=== PATIENT | female | born 1945 | race Caucasian/White ===

== ENCOUNTER 2017-06-17 16:07 | Emergency (ER) | payer OTHER ==
[~2017-06-17] VITALS: Ht 175.3 cm; Wt 120.7 kg
[~2017-06-17 16:07] MED LIST: AMLODIPINE BESY10 MG PO; AMLODIPINE BESYL5 MG PO; ASPIRIN EC81 MG PO; ATORVASTATIN CA10 MG PO; BENICAR HCT 401 EAC1 PO; BENICAR20 MG PO; BENICAR40 MG; CARVEDILOL25 MG PO; CLARITIN10 MG PO; CLONIDINE HCL0.1 MG PO; CLONIDINE HCL0.2 MG PO; COZAAR100 MG PO; CYMBALTA30 MG; CYMBALTA30 MG PO; DEPAKOTE ER250 MG PO; GABAPENTIN100 MG PO; HARVONI PO; HUMALOG MI100 UNIT/2 SQ; HYDROCHLOROTH12.5 MG; LACTULOSE10 GM/151 PO; LOSARTAN POTAS100 MG PO; LOSARTAN-HCTZ1 EAC1 PO; LYRICA200 MG PO; MENTHOL COUGH PO; METFORMIN HCL500 MG PO; METOPROLOL TART50 MG PO; NAMENDA10 MG PO; NORVASC5 MG PO; NOVOLOG100 UNITS1; OXYCONTIN15 MG; PILOCARPINE HCL5 MG PO; PROMETHAZINE HC25 M1 PO; QUETIAPINE FUMA25 MG PO; ROBITUSSIN-COU237 ML PO; SALINE NASAL SP45 ML; TIZANIDINE HCL4 M1 PO; TORSEMIDE10 MG PO; ULTRAM 50MG50 MG PO; XANAX2 MG
[2017-06-18] MEDS ORDERED: DIAZEPAM 5 MG TAB PO PRN (01:30)
[2017-06-18] MEDS ORDERED: HYDROCODONE/APAP 5MG-325MG TAB PO ONE (01:30)
--- NOTE | 2017-06-18 02:25 | Diagnostic Imaging Report ---
History: Trauma, fall Comparison studies: None Technique: Axial images were obtained from the brain and cervical spine. Coronal and sagittal images reconstructed from the axial data. Intravenous contrast: None Findings: Head CT: Multiple prior head CTs which date to 01/11/2015, most recent head CT of 07/14/2015. Brain MRI of 03/19/2015. Cervical spine CT of 01/19/2014. Scalp: No abnormalities. Bones: No fractures, blastic or lytic lesions. Extra-axial spaces: No masses. No fluid collections. Brain sulci: Mildly prominent. Ventricles: Mild compensatory dilatation. No hydrocephalus. Extra-axial spaces: No mass, no fluid collection. Parenchyma: No mass, acute hemorrhage or acute cortical vascular insults. A few scattered ill-defined and mildly confluent-appearing periventricular hypodensities in the supratentorial white matter are nonspecific but most compatible with chronic small vessel ischemic changes. Mild disproportionate right anteromedial temporal lobe volume loss is nonspecific. Sellar/suprasellar region: No abnormalities. Craniocervical junction: The foramen magnum is patent. No Chiari one malformation. Cervical spine CT: Fractures: None. Soft tissues: No gross abnormalities. Atlantoaxial articulation: Intact. Alignment: Straightened cervical curvature may be positional. No subluxations. Cervicomedullary junction: No abnormalities. The foramen magnum is patent. Vertebrae: No infection or neoplasm. Degenerative changes: Mild foraminal stenosis on the left at C3-C4 and at C4-C5 due to uncovertebral and facet arthrosis. Multilevel facet arthrosis, worse/moderate bilaterally at C7-T1. No significant canal stenosis. Incidental findings: Atherosclerotic calcifications in the carotid siphons. Nonspecific left mastoid opacification, new from previous exam. IMPRESSION: Head CT: 1. No acute intracranial abnormalities. 2. New nonspecific left mastoid opacification. 3. No other changes from previous head CT of 07/14/2015. 4. Chronic findings include: Mild generalized volume loss, moderate microvascular ischemic changes and nonspecific right anteromedial temporal lobe volume loss. Cervical spine CT: 1. No cervical spine fracture or subluxation. 2. Degenerative changes as described. 3. Cannot adequately evaluate ligament, spinal cord and or vascular abnormalities on the basis of this examination. Signed by: Dr. Guanakito Parsons M.D. on 06/18/2017 2:21 AM
--- NOTE | 2017-06-18 02:28 | Diagnostic Imaging Report ---
EXAM: CHEST SINGLE (PORTABLE), AP 1 view DATE: 06/18/2017 1:17 AM Time stamp on exam: 0155 hours INDICATION: Fall COMPARISON: AP view of the chest March 13, 2017 FINDINGS: LINES/TUBES: None LUNGS: No consolidations or edema. Calcified granuloma right upper lung. PLEURA: No effusions or pneumothorax. HEART AND MEDIASTINUM: Normal size and contour. BONES AND SOFT TISSUES: No acute findings. IMPRESSION: No acute thoracic abnormality. Signed by: Dr. Gail Lebron M.D. on 06/18/2017 2:24 AM
--- NOTE | 2017-06-18 02:34 | Diagnostic Imaging Report ---
EXAM: FOOT LEFT COMPLETE, AP, lateral and oblique DATE: 06/18/2017 1:17 AM Time stamp on exam: 0156 hours INDICATION: Fall, left foot pain COMPARISON: None FINDINGS: BONES: No acute fractures. JOINTS: Questionable widening between the first and second metatarsal bases. SOFT TISSUES: Soft tissue swelling of the foot. IMPRESSION: No evidence of a left foot fracture. Questionable widening between the first and second metatarsal bases. If there is focal point tenderness, consider follow-up MRI of the foot look for ligamentous injury. Signed by: Dr. Gail Lebron M.D. on 06/18/2017 2:31 AM
--- NOTE | 2017-06-18 02:35 | Diagnostic Imaging Report ---
EXAM: KNEE RIGHT THREE VIEWS, AP, lateral and oblique DATE: 06/18/2017 1:17 AM Time stamp on exam: 0203 hours INDICATION: Fall, right knee pain COMPARISON: None FINDINGS: BONES: No acute fractures. JOINTS: No malalignment. Tricompartmental osteophytosis. Patellofemoral compartment joint space narrowing. SOFT TISSUES: Normal IMPRESSION: No evidence of a right knee fracture. Signed by: Dr. Gail Lebron M.D. on 06/18/2017 2:32 AM
[2017-06-18 03:26] VITALS: BP 142/62
== END 2017-06-18 06:57 | disposition home or self-care (01) ==
LOC: ER 16:07
DX: S00.83XA Contusion of other part of head, initial encounter (principal); S20.219A Contusion of unspecified front wall of thorax, initial encounter; S80.01XA Contusion of right knee, initial encounter; S90.32XA Contusion of left foot, initial encounter; S16.1XXA Strain of muscle, fascia and tendon at neck level, initial encounter; S96.912A Strain of unspecified muscle and tendon at ankle and foot level, left foot, initial encounter
CPT/HCPCS: 70450; 71010; 72125; 99284

== ENCOUNTER → 2017-07-19 | Outpatient (CLI) | payer OTHER ==
[2017-07-19 17:41] LABS: ANION GAP 12.1 mmol/L (8-16); BASOPHILS % 0.2 % (0.0-1.0); CALCIUM 8.5 mg/dL (8.4-10.2); CREATININE, SERUM 1.26 mg/dL (0.57-1.11); EOSINOPHILS # (AUTO) 0.1 (0.0-0.4); EOSINOPHILS % 2.5 % (0.0-6.0); HEMATOCRIT 33.4 % (34.2-44.1); HEMOGLOBIN 10.7 g/dL (12.0-16.0); LYMPHOCYTES # (AUTO) 1.2 (1.0-3.2); LYMPHOCYTES % 23.4 % (18.0-39.1); MEAN CORPUSCULAR HEMOGLOBIN 25.8 pg (28-32); MEAN CORPUSCULAR VOLUME 80.7 fL (81-99); MONOCYTES # (AUTO) 0.5 (0.2-0.8); MONOCYTES % 8.7 % (4.4-11.3); NEUTROPHILS # (AUTO) 3.4 (2.1-6.9); NEUTROPHILS % 64.8 % (38.7-80.0); PLATELET COUNT 119 x10e3/uL (140-360); POTASSIUM 4.1 mmol/L (3.5-5.1); RED BLOOD COUNT 4.14 x10e6/uL (3.6-5.1); RED CELL DISTRIBUTION WIDTH 15.3 % (11.7-14.4)
== END ==
LOC: NPA 12:22
PROVIDERS: ATTEND Internal Medicine Pulmonary Disease
DX: Z02.89 Encounter for other administrative examinations (principal)
CPT/HCPCS: 36415; 80048; 85025

== ENCOUNTER → 2017-07-23 | Outpatient (CLI) | payer OTHER ==
[2017-07-23 15:34] LABS: ANION GAP 14.9 mmol/L (8-16); CALCIUM 9.4 mg/dL (8.4-10.2); CREATININE, SERUM 1.14 mg/dL (0.57-1.11); POTASSIUM 3.9 mmol/L (3.5-5.1)
[2017-07-23 15:35] LABS: BASOPHILS % 0.3 % (0.0-1.0); EOSINOPHILS # (AUTO) 0.1 (0.0-0.4); EOSINOPHILS % 2.2 % (0.0-6.0); HEMATOCRIT 39.3 % (34.2-44.1); HEMOGLOBIN 12.2 g/dL (12.0-16.0); LYMPHOCYTES # (AUTO) 1.7 (1.0-3.2); LYMPHOCYTES % 26.3 % (18.0-39.1); MEAN CORPUSCULAR HEMOGLOBIN 25.6 pg (28-32); MEAN CORPUSCULAR VOLUME 82.6 fL (81-99); MONOCYTES # (AUTO) 0.3 (0.2-0.8); MONOCYTES % 5.3 % (4.4-11.3); NEUTROPHILS # (AUTO) 4.2 (2.1-6.9); NEUTROPHILS % 65.6 % (38.7-80.0); PLATELET COUNT 150 x10e3/uL (140-360); RED BLOOD COUNT 4.76 x10e6/uL (3.6-5.1); RED CELL DISTRIBUTION WIDTH 15.3 % (11.7-14.4)
== END ==
LOC: NPA 12:30
PROVIDERS: ATTEND Internal Medicine Pulmonary Disease
DX: Z02.89 Encounter for other administrative examinations (principal)
CPT/HCPCS: 36415; 80048; 85025

== ENCOUNTER 2017-08-29 12:43 | Observation (INO) | payer MEDICARE, OTHER ==
[~2017-08-29] VITALS: Ht 170.2 cm; Wt 121.8 kg
--- OUTSIDE RECORDS SUMMARY | 2017-08-29 12:46 | XMS REPORT ---
[facility] Address Unknown Phone Unavailable Care Team Providers Care Control Clerk Head Name Role Phone ANA ROSA AGUIRRE Unavailable Unavailable KARIS CONNOR Unavailable Unavailable Problems This patient has no known problems. Allergies, Adverse Reactions, Alerts This patient has no known allergies or adverse reactions. Medications This patient has no known medications. Results Test Description Test Time Test Comments Text Results Atomic Results Result Comments CT BRAIN WO [place] [address] Patient Name: RAJNI DUDLEY MR #: [id number] : 1945 Age/Sex: 72/F Req # : [id number] Adm Physician: Ordered by: ANA ROSA AGUIRRE MD Report #: [id number] Location: ER Room/Bed: Procedure: [id number] CT/CT BRAIN WO Exam Date: 06/18/17 Exam Time: 0140 REPORT STATUS: Signed History: Trauma, fall Comparison studies: None Technique: Axial images were obtained from the brain and cervical spine. Coronal and sagittal images reconstructed from the axial data. Intravenous contrast: None Findings: Head CT: Multiple prior head CTs which date to 01/11/2015, most recent head CT of 07/14/2015. Brain MRI of . Cervical spine CT of 01/19/2014. Scalp: No abnormalities. Bones : No fractures, blastic or lytic lesions. Extra-axial spaces: No masses. No fluid collections. Brain sulci: Mildly prominent. Ventricles: Mild compensatory dilatation. No hydrocephalus. Extra-axial spaces: No mass, no fluid collection. Parenchyma: No mass, acute hemorrhage or acute cortical vascular insults. A few scattered ill-defined and mildly confluent- appearing periventricular hypodensities in the supratentorial white matter are nonspecific but most compatible with chronic small vessel ischemic changes. Mild disproportionate right anteromedial temporal lobe volume loss is nonspecific. Sellar/suprasellar region: No abnormalities. Craniocervical junction: The foramen magnum is patent. No Chiari one malformation. Cervical spine CT: Fractures: None. Soft tissues: No gross abnormalities. Atlantoaxial articulation: Intact. Alignment: Straightened cervical curvature may be positional. No subluxations. Cervicomedullary junction: No abnormalities. The foramen magnum is patent. Vertebrae: No infection or neoplasm. Degenerative changes: Mild foraminal stenosis on the left at C3-C4 and at C4-C5 due to uncovertebral and facet arthrosis. Multilevel facet arthrosis, worse/moderate bilaterally at C7- T1. No significant canal stenosis. Incidental findings: Atherosclerotic calcifications in the carotid siphons. Nonspecific left mastoid opacification , new from previous exam. IMPRESSION: Head CT: 1. No acute intracranial abnormalities. 2. New nonspecific left mastoid opacification. 3. No other changes from previous head CT of 07/14/2015. 4. Chronic findings include: Mild generalized volume loss, moderate microvascular ischemic changes and nonspecific right anteromedial temporal lobe volume loss. Cervical spine CT: 1. No cervical spine fracture or subluxation. 2. Degenerative changes as described. 3. Cannot adequately evaluate ligament, spinal cord and or vascular abnormalities on the basis of this examination. Signed by: Dr. Justina Parsons M.D. on 06/18/2017 2:21 AM Dictated By: JUSTINA PARSONS MD 0 Transcribed By: MICHEAL on 06/18/17220 COPY TO: ANA ROSA AGUIRRE MD CT CERVICAL SPINE WO [place] [address] Patient Name: RAJNI DUDLEY MR #: [id number] : 1945 Age/Sex: 72/F Req #: [id number] Adm Physician: Ordered by: ANA ROSA AGUIRRE MD Report #: [id number] Location: ER Room/Bed: Procedure: [id number] CT/CT CERVICAL SPINE WO Exam Date: 06/18/17 Exam Time: 0140 REPORT STATUS: Signed History: Trauma, fall Comparison studies: None Technique: Axial images were obtained from the brain and cervical spine. Coronal and sagittal images reconstructed from the axial data. Intravenous contrast: None Findings: Head CT: Multiple prior head CTs which date to 01/11/2015, most recent head CT of 2015. Brain MRI of 03/19/2015. Cervical spine CT of 01/19/2014. Scalp: No abnormalities. Bones: No fractures, blastic or lytic lesions. Extra- axial spaces: No masses. No fluid collections. Brain sulci: Mildly prominent. Ventricles: Mild compensatory dilatation. No hydrocephalus. Extra -axial spaces: No mass, no fluid collection. Parenchyma: No mass, acute hemorrhage or acute cortical vascular insults. A few scattered ill-defined and mildly confluent-appearing periventricular hypodensities in the supratentorial white matter are nonspecific but most compatible with chronic small vessel ischemic changes. Mild disproportionate right anteromedial temporal lobe volume loss is nonspecific. Sellar/suprasellar region: No abnormalities. Craniocervical junction: The foramen magnum is patent. No Chiari one malformation. Cervical spine CT: Fractures: None. Soft tissues: No gross abnormalities. Atlantoaxial articulation: Intact. Alignment: Straightened cervical curvature may be positional. No subluxations. Cervicomedullary junction: No abnormalities. The foramen magnum is patent. Vertebrae: No infection or neoplasm. Degenerative changes: Mild foraminal stenosis on the left at C3-C4 and at C4-C5 due to uncovertebral and facet arthrosis. Multilevel facet arthrosis, worse/moderate bilaterally at C7- T1. No significant canal stenosis. Incidental findings: Atherosclerotic calcifications in the carotid siphons. Nonspecific left mastoid opacification , new from previous exam. IMPRESSION: Head CT: 1. No acute intracranial abnormalities. 2. New nonspecific left mastoid opacification. 3. No other changes from previous head CT of 07/14/2015. 4. Chronic findings include: Mild generalized volume loss, moderate microvascular ischemic changes and nonspecific right anteromedial temporal lobe volume loss. Cervical spine CT: 1. No cervical spine fracture or subluxation. 2. Degenerative changes as described. 3. Cannot adequately evaluate ligament, spinal cord and or vascular abnormalities on the basis of this examination. Signed by: Dr. Justina Parsons M.D. on 06/18/2017 2:21 AM Dictated By: JUSTINA PARSONS MD 0 Transcribed By: MICHEAL on 06/18/17220 COPY TO: ANA ROSA AGUIRRE MD CHEST SINGLE (PORTABLE) [place] [address] Patient Name: RAJNI DUDLEY MR #: [id number] : 1945 Age/Sex: 72/F Req #: [id number] Adm Physician: Ordered by: ANA ROSA AGUIRRE MD Report #: [id number] Location: ER Room/Bed: Procedure: [id number] DX/CHEST SINGLE (PORTABLE) Exam Date: 06/18/17 Exam Time: 0155 REPORT STATUS: Signed EXAM: CHEST SINGLE (PORTABLE), AP 1 view DATE: 06/18/2017 1:17 AM Time stamp on exam: 0155 hours INDICATION: Fall COMPARISON: AP view of the chest March 13, 2017 FINDINGS: LINES/TUBES: None LUNGS: No consolidations or edema. Calcified granuloma right upper lung. PLEURA: No effusions or pneumothorax. HEART AND MEDIASTINUM: Normal size and contour. BONES AND SOFT TISSUES: No acute findings. IMPRESSION: No acute thoracic abnormality. Signed by: Dr. Lynda Lebron M.D. on 06/18/2017 2: 24 AM Dictated By: LYNDA LEBRON MD 3 Transcribed By: MICHEAL on 06/18/17223 COPY TO: ANA ROSA AGUIRRE MD KNEE RIGHT THREE VIEWS [place] [address] Patient Name: RAJNI DUDLEY MR #: [id number] : 1945 Age/Sex: 72/F Req #: [id number] Adm Physician: Ordered by: ANA ROSA AGUIRRE MD Report #: [id number] Location: ER Room/Bed: Procedure: [id number] DX/KNEE RIGHT THREE VIEWS Exam Date: 06/18/17 Exam Time: 0155 REPORT STATUS: Signed EXAM: KNEE RIGHT THREE VIEWS, AP, lateral and oblique DATE: 06/18/2017 1:17 AM Time stamp on exam: 0203 hours INDICATION: Fall, right knee pain COMPARISON: None FINDINGS: BONES: No acute fractures. JOINTS: No malalignment. Tricompartmental osteophytosis. Patellofemoral compartment joint space narrowing. SOFT TISSUES: Normal IMPRESSION: No evidence of a right knee fracture. Signed by: Dr. Lynda Lebron M.D. on 2017 2:32 AM Dictated By: LYNDA LEBRON MD 1 Transcribed By: MICHEAL on 06/18/17231 COPY TO: ANA ROSA AGUIRRE MD FOOT LEFT COMPLETE [place] [address] Patient Name: RAJNI DUDLEY MR #: [id number] : 1945 Age/Sex: 72/F Req #: [id number] Adm Physician: Ordered by: ANA ROSA AGUIRRE MD Report #: [id number] Location: ER Room/Bed: Procedure: [id number] DX/FOOT LEFT COMPLETE Exam Date: 06/18/17 Exam Time: 0155 REPORT STATUS: Signed EXAM: FOOT LEFT COMPLETE, AP, lateral and oblique DATE: 06/18/2017 1:17 AM Time stamp on exam : 0156 hours INDICATION: Fall, left foot pain COMPARISON: None FINDINGS : BONES: No acute fractures. JOINTS: Questionable widening between the first and second metatarsal bases. SOFT TISSUES: Soft tissue swelling of the foot. IMPRESSION: No evidence of a left foot fracture. Questionable widening between the first and second metatarsal bases. If there is focal point tenderness, consider follow-up MRI of the foot look for ligamentous injury. Signed by: Dr. Lynda Lebron M.D. on 06/18/2017 2:31 AM Dictated By: LYNDA LEBRON MD 0 Transcribed By: MICHEAL on 06/18/17230 COPY TO: ANA ROSA AGUIRRE MD CHEST SINGLE (PORTABLE) [place] [address] Patient Name: RAJNI DUDLEY MR #: [id number] : 1945 Age/Sex: 72/F Req #: [id number] [facility] Physician: Ordered by: KARIS CONNOR MD Report #: [id number] Location: ER Room/Bed: Procedure: [id number] DX/CHEST SINGLE (PORTABLE) Exam Date: 03/13/17 Exam Time: 1909 REPORT STATUS: Signed EXAM: CHEST SINGLE (PORTABLE), AP 1 view DATE: 03/13/2017 6:30 PM Time stamp on exam: 1839 hours INDICATION: Chest pain COMPARISON: AP view of the chest July 14, 2015 FINDINGS: LINES/TUBES: None LUNGS: No consolidations or edema. Several 1 cm nodule in the right lung since at least 2013, considered benign. PLEURA: No effusions or pneumothorax. HEART AND MEDIASTINUM: Normal size and contour. BONES AND SOFT TISSUES: No acute findings. IMPRESSION: No acute thoracic abnormality. Signed by: Dr. Lynda Lebron M.D. on 03/13/2017 7:39 PM Dictated By: LYNDA LEBRON MD 38 Transcribed By: MICHEAL on 03/13/171938 COPY TO: KARIS CONNOR MD
[2017-08-29] MEDS ORDERED: FAMOTIDINE 20 MG/2 ML VIAL IV STA (13:47)
[2017-08-29] MEDS ORDERED: SODIUM CHLORIDE 0.9% 1000ML 1,000 ML IV STA (13:47)
[2017-08-29] MEDS ORDERED: METRONIDAZOLE 500MG/NS 100ML 100 ML IV ONE (14:00)
[2017-08-29 14:24] LABS: BASOPHILS % 0.3 % (0.0-1.0); EOSINOPHILS # (AUTO) 0.1 (0.0-0.4); EOSINOPHILS % 2.2 % (0.0-6.0); HEMOGLOBIN 11.7 g/dL (12.0-16.0); LYMPHOCYTES # (AUTO) 1.2 (1.0-3.2); LYMPHOCYTES % 19.8 % (18.0-39.1); MEAN CORPUSCULAR HEMOGLOBIN 26.5 pg (28-32); MEAN CORPUSCULAR HGB CONC 32.5 g/dL (31-35); MEAN CORPUSCULAR VOLUME 81.6 fL (81-99); MONOCYTES # (AUTO) 0.4 (0.2-0.8); MONOCYTES % 6.4 % (4.4-11.3); NEUTROPHILS # (AUTO) 4.2 (2.1-6.9); NEUTROPHILS % 70.5 % (38.7-80.0); PLATELET COUNT 129 x10e3/uL (140-360); RED BLOOD COUNT 4.41 x10e6/uL (3.6-5.1)
[2017-08-29] MEDS ORDERED: CIPROFLOXACIN 400 MG/D5W 200ML 200 ML IV ONE (14:30)
[2017-08-29] MEDS ORDERED: NYSTATIN/TRIAMCINOLONE 15 GM CR TOP ONE (14:30)
[2017-08-29] MEDS ORDERED: PROMETHAZINE 12.5MG/ NACL 0.9% 12.5 MG/50 ML BAG IV ONE (14:30)
[2017-08-29] MEDS ORDERED: MORPHINE SULFATE 2 MG/ML SYR IV ONE (14:30)
[2017-08-29 14:33] LABS: INR 1.14; PROTHROMBIN TIME 13.7 seconds (11.9-14.5)
[2017-08-29 14:34] LABS: PARTIAL THROMBOPLASTIN TIME 24.7 seconds (23.8-35.5)
[2017-08-29 14:43] LABS: ALANINE AMINOTRANSFERASE 11 IU/L (0-55); ALBUMIN 3.6 g/dL (3.5-5.0); ALBUMIN/GLOBULIN RATIO 0.9 (0.8-2.0); ALKALINE PHOSPHATASE 102 IU/L (40-150); ANION GAP 12.1 mmol/L (8-16); BLOOD UREA NITROGEN 17 mg/dL (7-26); BUN/CREATININE RATIO 18 (6-25); CALCIUM 9.5 mg/dL (8.4-10.2); CARBON DIOXIDE 30 mmol/L (22-29); CHLORIDE 102 mmol/L (98-107); CREATINE KINASE 28 IU/L (29-168); CREATININE, SERUM 0.93 mg/dL (0.57-1.11); EST GLOMERULAR FILTRATION RATE 59 ML/MIN (60-); GLUCOSE 151 mg/dL (74-118); LIPASE 40 U/L (8-78); MAGNESIUM 1.7 MG/DL (1.3-2.1); POTASSIUM 4.1 mmol/L (3.5-5.1); SODIUM 140 mmol/L (136-145)
--- NOTE | 2017-08-29 14:44 | Diagnostic Imaging Report ---
EXAM: XR CHEST 1 VIEW DATE: 08/29/2017 1:47 PM INDICATION: Pain COMPARISON: None FINDINGS: Lines and Tubes: None Heart and Mediastinum: No acute findings. Lungs and Pleura: Granuloma right upper lung. No pneumothorax. Hazy opacities lung bases suggest overlying soft tissue. Bones and Soft Tissues: No acute findings. IMPRESSION: 1. No acute cardiopulmonary findings. Signed by: Dr. Ephraim Robert MD on 08/29/2017 2:41 PM
[2017-08-29 15:16] LABS: B-TYPE NATRIURETIC PEPTIDE2 63.3 pg/mL (0-100)
[2017-08-29 15:19] LABS: BILIRUBIN,URINE NEGATIVE (NEGATIVE); CLARITY,URINE CLEAR (CLEAR); COLOR,URINE YELLOW (YELLOW); KETONES,URINE NEGATIVE (NEGATIVE); LEUKOCYTE ESTERASE ,URINE 2+ (NEGATIVE); NITRITE,URINE NEGATIVE (NEGATIVE); PROTEIN,URINE DIPSTICK NEGATIVE (NEGATIVE); URINE UROBILINOGEN 0.2 mg/dL (0.2 - 1)
[2017-08-29 15:33] LABS: RBC,URINE 0-5 /HPF (0-5)
[2017-08-29 15:34] LABS: BACTERIA,URINE RARE /HPF; EPITHELIAL CELLS,URINE FEW /LPF
--- NOTE | 2017-08-29 15:53 | Diagnostic Imaging Report ---
EXAM: CT Abdomen and Pelvis WITH contrast INDICATION: Pain. COMPARISON: None. TECHNIQUE: Abdomen and Pelvis was scanned utilizing a multidetector helical scanner after administration of IV contrast. Coronal and sagittal reformations were obtained. IV CONTRAST: 100 mL Isovue-370 COMPLICATIONS: None RADIATION DOSE: Total DLP:862 mGy*cm Estimated effective dose: (DLP x 0.015 x size factor) mSv CTDIvol has been reviewed. It is below the limits set by the Radiation Protocol Committee (RPC). FINDINGS: Abdomen: Lung Bases: No acute findings. Solid Organs: Splenic granulomata present. Otherwise, liver, adrenals, kidneys, spleen, and pancreas are unremarkable. Donalds phenomenon incidentally noted. Upper GI Tract: Post surgical changes GE junction. Gastric decompression limits adequate evaluation. No small bowel obstructive changes. Vascularity: Mild vascular calcifications with no aneurysm of the aorta. Lymph Nodes: No suspicious adenopathy. Other: None. Pelvis: Bladder: Decompressed. Other: Uterus absent. Colon: No acute colonic findings. Bones: No acute findings. IMPRESSION: 1. No acute findings. See above for full details. Signed by: Dr. Ephraim Robert MD on 08/29/2017 3:49 PM
[2017-08-29] MEDS ORDERED: SODIUM CHLORIDE 0.9% 50ML 50 ML ONE (16:00)
[2017-08-29] MEDS ORDERED: IOPAMIDOL 370 MG/ML 200 ML INFUS..BTL INJ ONE (16:00)
[2017-08-29] MEDS ORDERED: CEFTRIAXONE SOD 1 GM VIAL IM ONE (16:30)
[2017-08-29] MEDS ORDERED: DEXTROSE 50% SYRINGE 50 ML IV PRN (16:30)
[2017-08-29] MEDS ORDERED: CIPROFLOXACIN 400 MG/D5W 200ML 200 ML IV SCH (17:00)
[2017-08-29] MEDS: SODIUM CHLORIDE 0.9% 1000ML 1,000 ML IV SCH (17:10)
[2017-08-29] MEDS: INSULIN REGULAR, HUMAN 100 UNIT/1 ML 3ML VIAL SQ SCH ×2 (17:30→21:00)
[2017-08-29] MEDS ORDERED: METRONIDAZOLE 500MG/NS 100ML 100 ML IV SCH (18:00)
[2017-08-29 18:20] VITALS: BP 156/70
[2017-08-29 18:33] VITALS: BP 156/70
[2017-08-29] MEDS: NYSTATIN/TRIAMCINOLONE 15 GM CR TOP SCH (19:08)
[2017-08-29 20:00] VITALS: BP 169/70
[2017-08-29] MEDS: MORPHINE SULFATE 2 MG/ML SYR IV PRN (21:35)
[2017-08-29] MEDS: AMLODIPINE BESYLATE 10 MG TAB PO SCH (23:00)
[2017-08-29] MEDS: METRONIDAZOLE 500MG/NS 100ML 100 ML IV SCH (23:00)
[2017-08-29] MEDS ORDERED: HYDRALAZINE HCL 20 MG/ML VIAL IV PRN (23:00)
[2017-08-29] MEDS: FAMOTIDINE 20 MG TAB PO SCH (23:00)
[2017-08-29] MEDS ORDERED: NON-FORMULARY MEDICATION (Carvedilol 25 MG) PO SCH (23:00)
[2017-08-30] VITALS (9 sets, daily range): BP systolic 126–180; BP diastolic 58–72
[2017-08-30] MEDS: SODIUM CHLORIDE 0.9% 1000ML 1,000 ML IV SCH ×2 (00:30→08:30)
[2017-08-30] MEDS ORDERED: HYDROXYZINE HCL25 MG PO (02:00)
[2017-08-30] MEDS ORDERED: NYSTATIN1 EAC1 TOP (02:00)
[2017-08-30] MEDS ORDERED: ULTRAM50 MG PO (02:00)
[2017-08-30] MEDS ORDERED: NAMENDA10 MG PO (02:00)
[2017-08-30] MEDS: METRONIDAZOLE 500MG/NS 100ML 100 ML IV SCH ×3 (05:00→20:53)
[2017-08-30] MEDS: CIPROFLOXACIN 400 MG/D5W 200ML 200 ML IV SCH ×2 (05:00→17:37)
[2017-08-30 06:51] LABS: BASOPHILS % 0.4 % (0.0-1.0); EOSINOPHILS # (AUTO) 0.1 (0.0-0.4); EOSINOPHILS % 2.6 % (0.0-6.0); HEMATOCRIT 32.1 % (34.2-44.1); HEMOGLOBIN 10.6 g/dL (12.0-16.0); LYMPHOCYTES # (AUTO) 1.1 (1.0-3.2); LYMPHOCYTES % 20.7 % (18.0-39.1); MEAN CORPUSCULAR HEMOGLOBIN 26.5 pg (28-32); MEAN CORPUSCULAR VOLUME 80.3 fL (81-99); MONOCYTES # (AUTO) 0.4 (0.2-0.8); MONOCYTES % 6.8 % (4.4-11.3); NEUTROPHILS # (AUTO) 3.8 (2.1-6.9); NEUTROPHILS % 69.1 % (38.7-80.0); PLATELET COUNT 117 x10e3/uL (140-360); RED CELL DISTRIBUTION WIDTH 14.8 % (11.7-14.4)
[2017-08-30 07:30] LABS: ALBUMIN 3.2 g/dL (3.5-5.0); ANION GAP 10.9 mmol/L (8-16); CALCIUM 8.9 mg/dL (8.4-10.2); CREATININE, SERUM 0.93 mg/dL (0.57-1.11); POTASSIUM 3.9 mmol/L (3.5-5.1)
[2017-08-30] MEDS: MORPHINE SULFATE 2 MG/ML SYR IV PRN ×3 (08:00→20:54)
[2017-08-30] MEDS: FAMOTIDINE 20 MG TAB PO SCH ×2 (08:09→15:32)
[2017-08-30] MEDS: QUETIAPINE FUMARATE 25 MG TAB PO SCH (08:33)
[2017-08-30] MEDS: INSULIN REGULAR, HUMAN 100 UNIT/1 ML 3ML VIAL SQ SCH ×4 (08:35→20:54)
[2017-08-30] MEDS: OLMESARTAN 20 MG TAB PO SCH (08:35)
[2017-08-30] MEDS: NYSTATIN/TRIAMCINOLONE 15 GM CR TOP SCH ×2 (08:36→17:00)
[2017-08-30] MEDS: DIVALPROEX SODIUM 250 MG TAB...DR PO SCH ×2 (08:36→20:53)
[2017-08-30] MEDS: METFORMIN HCL 500 MG TAB PO SCH ×2 (08:36→17:41)
[2017-08-30] MEDS: DULOXETINE HCL 30 MG DELAYED RELEASE PO SCH (08:36)
[2017-08-30] MEDS: AMLODIPINE BESYLATE 10 MG TAB PO SCH (08:36)
[2017-08-30] MEDS: GABAPENTIN 100 MG CAP PO SCH ×2 (08:36→17:41)
[2017-08-30] MEDS: LORATADINE 10 MG TAB PO SCH (08:36)
[2017-08-30] MEDS: CARVEDILOL 12.5 MG TAB PO SCH ×2 (08:36→21:39)
[2017-08-30] MEDS ORDERED: CARVEDILOL 12.5 MG TAB PO SCH (09:00)
[2017-08-30] MEDS ORDERED: DIVALPROEX SODIUM 250 MG PO SCH (09:00)
[2017-08-30] MEDS ORDERED: TEMAZEPAM 15 MG CAP PO PRN (15:45)
[2017-08-30] MEDS ORDERED: BISACODYL 10 MG SUPP PR ONE (15:45)
[2017-08-30] MEDS ORDERED: TRAMADOL HCL 50 MG TAB PO PRN (15:45)
[2017-08-30] MEDS ORDERED: ACETAMIN/BUTALBITAL/CAFFEINE TAB PO PRN (15:45)
[2017-08-30] MEDS ORDERED: BISACODYL 10 MG SUPP PR PRN (15:45)
[2017-08-30] MEDS ORDERED: POLYETHYLENE GLYCOL 3350 17 GM PACK PO PRN (15:45)
[2017-08-30] MEDS: NYSTATIN 15 GM POWDER UD BTL TOP SCH (17:00)
[2017-08-30] MEDS: MEMANTINE 10 MG TAB PO SCH (17:41)
[2017-08-30] MEDS: DOCUSATE SODIUM 100 MG CAP PO SCH (17:41)
--- NOTE | 2017-08-30 17:42 | History and Physical ---
PRIMARY CARE PHYSICIAN: Dr. Mike Martínez. HISTORY OF PRESENT ILLNESS: The patient was sent from [facility] for evaluation as she has had a yeast infection in her groin and under her stomach folds for 2 weeks. Patient also states she has a yeast infection under the right breast. Nystatin has not been working. She has been seen in the emergency room and has been started on Flagyl and ciprofloxacin. Per documentation, she also ambulated to the triage with a slight limp and has been complaining of low back pain which is chronic in nature. PAST MEDICAL HISTORY: [id number] hypertension, diabetes mellitus, hepatitis C which has already been treated, liver disease, a spine injury approximately 8 years ago after a fall when she was working at a [employer] company, chronic low back pain, fibromyalgia, depression/anxiety, insomnia, early dementia, chronic constipation, headaches, under the care of a neurologist. PAST SURGICAL HISTORY: Cholecystectomy, appendectomy, 2 C-sections, gastric bypass with 100-pound weight loss in 1988, hernia repair, hysterectomy. SOCIAL HISTORY: Patient denies any history of tobacco use. She used to drink socially and use marijuana. No other illicit drug use. She is a half-way resident for approximately 1 year. She states that her daughter is planning on buying a house in [place] when her disability comes through in either October or November. FAMILY HISTORY: Patient's mother has a history of Alzheimer's disease. Father and brother have history of cardiac disorder. Daughter has a history of seizures. Father and brother have history of hypertension. Mother has history of skin cancer. Brother has history of kidney disease. Sister has history of gallstones. Daughter has history of arthritis. Father has history of aneurysm. ALLERGIES: SHE HAS AN ALLERGY TO PENICILLINS AND SULFA ANTIBIOTICS. HOME MEDICATIONS: Per electronic medical record. REVIEW OF SYSTEMS: Patient states she has been having chills. Denies dizziness. Has been having a headache as well as insomnia. She denies any complaints of sore throat or trouble swallowing. She states she was having some chest pain last night but this has resolved. She denies any shortness of breath, cough or phlegm. She has mild abdominal pain. Per the ER record, she had abdominal pain on admission in the left lower quadrant. She states she suffers from chronic constipation and had a small bowel movement earlier today but is requesting suppository. Musculoskeletal: She complains of low back pain that radiates around her right abdomen to the front, scores it an 8 on a scale of 0 to 10. She denies any dysuria, frequency or urgency with urination. Endocrine: Positive for diabetes. Hematology: Denies any bleeding or bruising. ID: No known history of HIV or immunodeficiency. Neurologic: Denies any focal weakness, numbness, tingling or seizures. Patient has a poor appetite. PHYSICAL EXAMINATION VITAL SIGNS: Temperature 97.6, heart rate 66, blood pressure 180/72 which was subsequently 126/58, respiratory rate 18, oxygen saturation 98%. She weighs 268 pounds. BMI 41.97. GENERAL: The patient is lying supine in bed. Appears relaxed, not anxious. Obese, well-developed, well-nourished female in no apparent distress. HEENT: Pupils equal, round, reactive to light. Extraocular eye movements are intact. Oropharynx is clear. Atraumatic, normocephalic. NECK: Supple. No lymphadenopathy, thyromegaly or JVD. No carotid bruits. CARDIOVASCULAR: Regular rate and rhythm. No murmur. LUNGS: Air entry bilaterally. Lungs clear to auscultation. ABDOMEN: Bowel sounds positive. Soft, nontender. Obese. BACK: No costovertebral angle tenderness. Tender at the lower back with gentle palpation. EXTREMITIES: Without pitting edema. No clubbing, cyanosis or marked swelling. No skin discoloration. INTEGUMENTARY: Warm, dry. NEUROLOGICAL: GCS 15. Cranial nerves 2-12 intact. Alert and oriented x4. Nonfocal. LABORATORY DATA: Today WBC 5.45, hemoglobin 10.6, hematocrit 32.1, platelets 117,000. Yesterday platelets were 129,000. PT 13.7, INR 1.14, PTT 24.7. Sodium 138, potassium 3.9, chloride 102, CO2 29, anion gap 10.9, BUN 14, creatinine 0.93, GFR 59, glucose 207. Fingerstick blood glucose levels today 231, 233. Calcium 8.9. Total bilirubin 0.7, AST 13, ALT 10, alkaline phosphatase 92. Total protein 6.4, albumin 3.2. Urinalysis with specific gravity 1.01, negative for urine nitrites, leukocyte esterase 2+, WBC 6-10, rare urine bacteria, a few epithelial cells. A urine culture and sensitivity is pending. Valproic acid level yesterday was less than 2. Yesterday EKG was completed which showed normal sinus rhythm. An abdomen and pelvis CT with contrast was completed yesterday, which according to the interpreting radiologist showed no acute findings. Uterus is absent. Chest x-ray yesterday showed no acute cardiopulmonary findings. She has a granuloma in the right upper lung, hazy opacities at the lung bases suggesting overlying soft tissue. ASSESSMENT AND PLAN 1. Candidiasis of the skin at the abdominal folds and into the right breast. Patient has been started on IV Flagyl and ciprofloxacin. Continue antibiotics. 2. Urinary tract infection. We will follow up on the urine culture and sensitivity. Continue Cipro. Monitor temperature and collect additional cultures p.r.n. 3. Abdominal pain, likely secondary to number 1 and number 2, as well as underlying history of chronic constipation. Monitor. 4. Hypertension. Blood pressure fluctuates but appears controlled on Coreg 25 mg q.12 h., Norvasc 10 mg daily, hydralazine 10 mg IV every 4 hours p.r.n. for hypertension. 5. Type 2 diabetes mellitus, uncontrolled. Hemoglobin A1c was 9.2% on March 19, 2015. Will recheck this. Continue regular insulin sliding scale. Will not add Levemir at this time as the patient is not eating well. 6. Thrombocytopenia. Monitor. 7. Chronic low back pain with history of spine injury about 2009. Pain control. She is currently on morphine sulfate 2 mg IV q.4 h. p.r.n. 8. Chronic constipation with a history of gastric bypass. Will add a bowel program with Colace, MiraLAX and Dulcolax suppository. 9. Insomnia. Trial of Restoril. 10. Early dementia. Supportive care. Continue Cymbalta. 11. Chronic headaches. Fioricet trial. 12. custodial resident. The patient will likely return there upon discharge to [facility]. 13. Body mass index 41.97. Continue ADA diet for nutritional support. 14. Prophylaxis. Pepcid. SCDs. Dictated by: Hitesh Alicia NP Job#: [id number] EV
[2017-08-30] MEDS: PROMETHAZINE HCL (IM) 25 MG/ML VIAL IV PRN (20:54)
[2017-08-30] MEDS ORDERED: ATORVASTATIN 10 MG TAB PO SCH (21:00)
[2017-08-30] MEDS ORDERED: BISACODYL 10 MG SUPP PR NR (21:00)
[2017-08-30] MEDS ORDERED: HYDROXYZINE HCL 25 MG TAB PO SCH (21:00)
[2017-08-31] VITALS: BP 150/79
[2017-08-31] MEDS: METRONIDAZOLE 500MG/NS 100ML 100 ML IV SCH ×3 (02:04→13:00)
[2017-08-31 04:00] VITALS: BP 132/62
[2017-08-31] MEDS: CIPROFLOXACIN 400 MG/D5W 200ML 200 ML IV SCH (05:53)
[2017-08-31 06:51] LABS: BASOPHILS % 0.4 % (0.0-1.0); EOSINOPHILS # (AUTO) 0.1 (0.0-0.4); EOSINOPHILS % 2.8 % (0.0-6.0); HEMATOCRIT 33.7 % (34.2-44.1); HEMOGLOBIN 10.8 g/dL (12.0-16.0); LYMPHOCYTES # (AUTO) 1.2 (1.0-3.2); LYMPHOCYTES % 24.8 % (18.0-39.1); MEAN CORPUSCULAR HEMOGLOBIN 26.4 pg (28-32); MEAN CORPUSCULAR VOLUME 82.4 fL (81-99); MONOCYTES # (AUTO) 0.4 (0.2-0.8); NEUTROPHILS # (AUTO) 3.2 (2.1-6.9); NEUTROPHILS % 64.6 % (38.7-80.0); PLATELET COUNT 120 x10e3/uL (140-360); RED BLOOD COUNT 4.09 x10e6/uL (3.6-5.1)
[2017-08-31 07:18] LABS: ANION GAP 11.6 mmol/L (8-16); CALCIUM 8.9 mg/dL (8.4-10.2); CREATININE, SERUM 1.11 mg/dL (0.57-1.11); MAGNESIUM 1.6 MG/DL (1.3-2.1); PHOSPHORUS 4.2 MG/DL (2.3-4.7); POTASSIUM 4.6 mmol/L (3.5-5.1)
[2017-08-31 07:56] VITALS: BP 132/66
[2017-08-31] MEDS: INSULIN REGULAR, HUMAN 100 UNIT/1 ML 3ML VIAL SQ SCH ×3 (09:02→16:30)
[2017-08-31] MEDS: MORPHINE SULFATE 2 MG/ML SYR IV PRN ×2 (09:15→15:10)
[2017-08-31] MEDS: CARVEDILOL 12.5 MG TAB PO SCH (09:19)
[2017-08-31] MEDS: GABAPENTIN 100 MG CAP PO SCH ×2 (09:19→17:12)
[2017-08-31] MEDS: LORATADINE 10 MG TAB PO SCH (09:19)
[2017-08-31] MEDS: FAMOTIDINE 20 MG TAB PO SCH ×2 (09:19→17:12)
[2017-08-31] MEDS: DIVALPROEX SODIUM 250 MG TAB...DR PO SCH (09:19)
[2017-08-31] MEDS: DOCUSATE SODIUM 100 MG CAP PO SCH ×2 (09:19→17:12)
[2017-08-31] MEDS: DULOXETINE HCL 30 MG DELAYED RELEASE PO SCH (09:19)
[2017-08-31] MEDS: METFORMIN HCL 500 MG TAB PO SCH ×2 (09:19→17:12)
[2017-08-31] MEDS: MEMANTINE 10 MG TAB PO SCH ×2 (09:19→17:12)
[2017-08-31] MEDS: OLMESARTAN 20 MG TAB PO SCH (09:19)
[2017-08-31] MEDS: NYSTATIN 15 GM POWDER UD BTL TOP SCH ×2 (09:20→17:12)
[2017-08-31] MEDS: AMLODIPINE BESYLATE 10 MG TAB PO SCH (09:20)
[2017-08-31] MEDS: QUETIAPINE FUMARATE 25 MG TAB PO SCH (09:20)
[2017-08-31] MEDS: NYSTATIN/TRIAMCINOLONE 15 GM CR TOP SCH ×2 (09:20→17:12)
[2017-08-31 11:23] VITALS: BP 117/85
[2017-08-31] MEDS ORDERED: SODIUM CHLORIDE 0.9% 50ML 50 ML ONE (15:09)
[2017-08-31] MEDS: PROMETHAZINE HCL (IM) 25 MG/ML VIAL IV PRN (15:20)
[2017-08-31 15:25] VITALS: BP 148/72
[2017-08-31] MEDS ORDERED: MIRALAX17 GM PO (16:23)
[2017-08-31] MEDS ORDERED: COLACE100 M1 PO (16:23)
[2017-08-31] MEDS ORDERED: DEPAKOTE250 MG PO (16:23)
[2017-08-31] MEDS ORDERED: LORATADINE10 MG PO (16:23)
[2017-08-31] MEDS ORDERED: Nystatin/Triamcinolone TOP (16:23)
[2017-08-31] MEDS ORDERED: Acetamin/Butalbital/Caffeine PO (16:23)
[2017-08-31] MEDS ORDERED: PROMETHAZI25 MG/1 M2 IV (16:23)
[2017-08-31] MEDS ORDERED: DULCOLAX SUPP10 MG PR (16:23)
[2017-08-31] MEDS ORDERED: RESTORIL15 MG PO (16:23)
[2017-08-31] MEDS ORDERED: FLAGYL500 MG PO (16:29)
[2017-08-31] MEDS ORDERED: CIPROFLOXACIN500 MG PO (16:54)
--- NOTE | 2017-08-31 18:07 | Discharge Summary ---
PERTINENT HISTORY AND PHYSICAL FINDINGS: Patient is a 72-year-old female that was sent from [facility] for evaluation as she has a yeast infection in her groin and under her stomach folds for 2 weeks as well as under the right breast. Nystatin has not been working as outpatient treatment. She was sent to the emergency room and started on IV Flagyl and ciprofloxacin. She has several chronic issues. PAST MEDICAL HISTORY: Includes [id number] hypertension, diabetes mellitus, hepatitis C which has already been treated, liver disease, a spine injury approximately 8 years ago after a fall when she was working at a [email or web address], chronic low back pain, fibromyalgia, depression/anxiety, insomnia, early dementia, chronic constipation, headaches treated under the care of a neurologist. PAST SURGICAL HISTORY: Significant for cholecystectomy, appendectomy, 2 C-sections, gastric bypass with 100-pound weight loss in 1988, hernia repair and a hysterectomy. ADMITTING DIAGNOSES: Include 1. Candidiasis of the skin at the abdominal folds and under the right breast. 2. Urinary tract infection. 3. Abdominal pain likely secondary to number 1, number 2 and gastroenteritis. 4. Hypertension. 5. Type 2 diabetes mellitus, uncontrolled. 6. Thrombocytopenia. 7. Chronic low back pain with a history of spine injury about 2009. 8. Chronic constipation with a history of gastric bypass. 9. Insomnia. 10. Early dementia. 11. Chronic headaches. 12. [facility] resident. 13. Body mass index. DISCHARGE DIAGNOSES: Include 1. Candidiasis of the skin at the abdominal folds and under the right breast. 2. Urinary tract infection. 3. Abdominal pain likely secondary to number 1, number 2 and gastroenteritis. 4. Hypertension. 5. Type 2 diabetes mellitus, uncontrolled. 6. Thrombocytopenia. 7. Chronic low back pain with a history of spine injury about 2009. 8. Chronic constipation with a history of gastric bypass. 9. Insomnia. 10. Early dementia. 11. Chronic headaches. 12. [facility] resident. 13. Body mass index. 14. Hypomagnesemia. There were no consulting physicians on the case during this admission. Magnesium level was 1.6 today. Please see H\T\P for admitting labs and diagnostics. Today the sodium was 142, potassium 4.6, chloride 106, CO2 29, BUN 19, creatinine 1.11, glucose 207. WBCs 5.01, hemoglobin 10.8, hematocrit 33.7, platelets 120,000. Glomerular filtration rate 48. Calcium 8.9, phosphorus 4.2. Fingerstick blood glucose levels 204, 183, 134. The urine culture and sensitivity was contaminated. Would be prudent to recheck it at the assisted living facility. Today the patient states that her headache became better yesterday but then returned. Her insomnia continues. Otherwise no change in review of systems. Physical examination is unchanged today. Her vital signs: Temperature 97.5, heart rate 73, blood pressure 148/72, respiration 16, oxygen saturation 96%. Patient's disposition is back [facility] without DME or home health. Discharge medications will include oral Cipro and Flagyl. She is on an ADA diet. Activity level as tolerated. Follow up with PCP in [address] Mike Martínez is listed as her PCP. Dictated by: Hitesh Alicia NP EMI BROCK MD Job#: [id number]
== END 2017-08-31 18:07 ==
LOC: ER 12:43 → ERHOLD 16:40 → IMCU 17:07
PROVIDERS: ADMIT Internal Medicine; ATTEND Internal Medicine
DX: B37.2 Candidiasis of skin and nail (principal); R10.31 Right lower quadrant pain; Z79.4 Long term (current) use of insulin; I10 Essential (primary) hypertension; Z88.0 Allergy status to penicillin; Z88.2 Allergy status to sulfonamides; N39.0 Urinary tract infection, site not specified; K59.00 Constipation, unspecified; R51 Headache; G47.00 Insomnia, unspecified; F03.90 Unspecified dementia, unspecified severity, without behavioral disturbance, psychotic disturbance, mood disturbance, and anxiety; D69.6 Thrombocytopenia, unspecified; E11.65 Type 2 diabetes mellitus with hyperglycemia; Z98.84 Bariatric surgery status; I25.10 Atherosclerotic heart disease of native coronary artery without angina pectoris; K52.9 Noninfective gastroenteritis and colitis, unspecified; E83.42 Hypomagnesemia; G89.21 Chronic pain due to trauma
CPT/HCPCS: 36415 ×3; 71045; 74177; 80048; 80053 ×2; 80164; 81001; 82550; 82553; 82948 ×3; 83036; 83605; 83690 ×2; 83735 ×2; 83880; 84100; 84443; 84484; 85025 ×3; 85610; 85730; 87086; 93005; 96372; 97161; 99285; G0378 ×3; G8981; G8982; G8983; J0696; J0744 ×2; J2270 ×3; J2550 ×3; J3410; J7030; Q9967

== ENCOUNTER 2018-03-07 20:47 | Emergency (ER) | payer MEDICARE ==
[~2018-03-07] VITALS: Ht 170.2 cm; Wt 121.6 kg
[~2018-03-07 20:47] MED LIST changes: +Acetamin/Butalbital/Caffeine PO; +CIPROFLOXACIN500 MG PO; +COLACE100 M1 PO; +DEPAKOTE250 MG PO; +DULCOLAX SUPP10 MG PR; +FLAGYL500 MG PO; +HYDROXYZINE HCL25 MG PO; +LORATADINE10 MG PO; +MIRALAX17 GM PO; +NYSTATIN1 EAC1 TOP; +Nystatin/Triamcinolone TOP; +PROMETHAZI25 MG/1 M2 IV; +RESTORIL15 MG PO; +ULTRAM50 MG PO
== END 2018-03-08 02:12 | disposition home or self-care (01) ==
LOC: ER 20:47
DX: M54.9 Dorsalgia, unspecified (principal); R60.0 Localized edema; E11.9 Type 2 diabetes mellitus without complications; I11.0 Hypertensive heart disease with heart failure; I50.9 Heart failure, unspecified; I25.10 Atherosclerotic heart disease of native coronary artery without angina pectoris; M79.7 Fibromyalgia; F32.9 Major depressive disorder, single episode, unspecified; B18.2 Chronic viral hepatitis C; Z79.4 Long term (current) use of insulin
CPT/HCPCS: 99283

== ENCOUNTER 2018-04-15 07:46 | Emergency (ER) | payer MEDICARE ==
[~2018-04-15] VITALS: Ht 170.2 cm; Wt 121.6 kg
[2018-04-15] MEDS ORDERED: HYDROCODONE/APAP 7.5MG-325MG 1 EA TAB PO NR (09:00)
[2018-04-15 10:10] LABS: BASOPHILS % 0.3 % (0.0-1.0); EOSINOPHILS # (AUTO) 0.2 (0.0-0.4); EOSINOPHILS % 3.8 % (0.0-6.0); HEMATOCRIT 38.8 % (34.2-44.1); LYMPHOCYTES % 17.2 % (18.0-39.1); MEAN CORPUSCULAR HEMOGLOBIN 25.5 pg (28-32); MEAN CORPUSCULAR HGB CONC 30.9 g/dL (31-35); MEAN CORPUSCULAR VOLUME 82.4 fL (81-99); MONOCYTES # (AUTO) 0.3 (0.2-0.8); MONOCYTES % 5.3 % (4.4-11.3); NEUTROPHILS # (AUTO) 4.4 (2.1-6.9); NEUTROPHILS % 72.9 % (38.7-80.0); PLATELET COUNT 151 x10e3/uL (140-360); RED BLOOD COUNT 4.71 x10e6/uL (3.6-5.1); RED CELL DISTRIBUTION WIDTH 13.4 % (11.7-14.4)
[2018-04-15 10:16] LABS: INR 0.93; PARTIAL THROMBOPLASTIN TIME 25.5 seconds (23.8-35.5); PROTHROMBIN TIME 13.3 seconds (11.9-14.5)
[2018-04-15 10:18] LABS: ALBUMIN 3.9 g/dL (3.5-5.0); ALBUMIN/GLOBULIN RATIO 0.9 (0.8-2.0); ANION GAP 14.9 mmol/L (8-16); BILIRUBIN,URINE NEGATIVE (NEGATIVE); CALCIUM 9.7 mg/dL (8.4-10.2); CLARITY,URINE SL CLOUDY (CLEAR); COLOR,URINE YELLOW (YELLOW); CREATININE, SERUM 1.11 mg/dL (0.57-1.11); KETONES,URINE NEGATIVE (NEGATIVE); LEUKOCYTE ESTERASE ,URINE NEGATIVE (NEGATIVE); MAGNESIUM 2.1 MG/DL (1.3-2.1); NITRITE,URINE NEGATIVE (NEGATIVE); POTASSIUM 3.9 mmol/L (3.5-5.1); PROTEIN,URINE DIPSTICK NEGATIVE (NEGATIVE); URINE UROBILINOGEN 0.2 mg/dL (0.2 - 1)
[2018-04-15] MEDS ORDERED: KETOROLAC TROMETHAMINE 30 MG/ML VIAL IV NR (10:30)
[2018-04-15 10:45] LABS: BACTERIA,URINE RARE /HPF; EPITHELIAL CELLS,URINE FEW /LPF; WBC,URINE (MAN) 0-5 /HPF (0-5)
--- NOTE | 2018-04-15 10:46 | Diagnostic Imaging Report ---
EXAMINATION: CT of the lumbar spine HISTORY: Low back pain and hip pain COMPARISON: Abdomen CT on 08/29/2017 TECHNIQUE: Multidetector helical axial images were obtained without contrast from L1 to S1. The images were reconstructed using bone and soft tissue algorithms and were viewed in axial, sagittal, and coronal planes. Dose modulation, iterative reconstruction, and/or weight based adjustment of the mA/kV was utilized to reduce the radiation dose to as low as reasonably achievable. FINDINGS: Alignment: Normal alignment and lordosis. Vertebral bodies: Normal height and density. Paraspinal muscles: Normal. Intervertebral disks: L1-L2: Normal. L2-L3: Minimal symmetric disc bulge without stenoses. L3-L4: Mild symmetric disc bulge and facet arthrosis without significant stenosis. L4-L5: Mild symmetric disc bulge, ligamenta flava thickening and facet arthrosis. Minimal anterolisthesis. Moderate spinal canal and bilateral foraminal stenosis. L5-S1: Mild symmetric disc bulge and moderate facet arthrosis mainly on the right side. Mild right foraminal stenosis. IMPRESSION: 1. No acute lumbar spine abnormalities. 2. Minimal degenerative anterolisthesis at L4-5, unchanged from abdomen CT on 08/29/2017. 3. Persistent moderate degenerative spinal canal and foraminal stenosis at L4-5. Signed by: Dr. Lynsey Pack M.D. on 04/15/2018 10:43 AM
--- NOTE | 2018-04-15 11:09 | Diagnostic Imaging Report ---
TECHNIQUE: Computed tomography imaging of the RIGHT HIP was performed WITHOUT injected contrast. Dose modulation, iterative reconstruction, and/or weight based adjustment of the mA/kV was utilized to reduce the radiation dose to as low as reasonably achievable. HISTORY: Right hip pain COMPARISON: None available. FINDINGS: No fracture. Small bone island in the femoral head. Minimal degenerative arthrosis of the right hip. Enthesophyte change at the right greater trochanter. Soft tissues are unremarkable. No focal atrophy. No fluid collection. IMPRESSION: No acute CT finding Signed by: Dr. Robert Jauregui M.D. on 04/15/2018 11:05 AM
[2018-04-15] MEDS ORDERED: DIAZEPAM 5 MG TAB PO NR (11:45)
[2018-04-15 13:09] VITALS: BP 149/92
[2018-04-15] MEDS ORDERED: HYDROMORPHONE 2MG/ML 2 MG/ML ML IV NR (13:15)
== END 2018-04-15 13:28 | disposition home or self-care (01) ==
LOC: ER 07:46
DX: M54.41 Lumbago with sciatica, right side (principal); I10 Essential (primary) hypertension; E11.9 Type 2 diabetes mellitus without complications; I50.9 Heart failure, unspecified; I25.10 Atherosclerotic heart disease of native coronary artery without angina pectoris; M79.7 Fibromyalgia; F41.9 Anxiety disorder, unspecified; F32.9 Major depressive disorder, single episode, unspecified
CPT/HCPCS: 36415; 72131; 73700; 80053; 81001; 83735; 85025; 85610; 85730; 87086; 99284; J1170; J1885

== ENCOUNTER 2019-04-21 13:05 | Emergency (ER) | payer MEDICARE ==
[~2019-04-21] VITALS: Ht 170.2 cm; Wt 121.6 kg
--- NOTE | 2019-04-21 13:25 | NUR ---
PT WENT STRAIGHT INTO RESTROOM AND STILL THERE. CHECKED ON PT, PT OK STATING SHE HAS DIARRHEA. PT CAME OUT ONCE, BUT HAD TO RETURN TO RESTROOM IMMEDIATELY
[2019-04-21] MEDS ORDERED: ONDANSETRON HCL INJ 2MG/ML 2ML 2 MG/ML VIAL IV STA (13:58)
[2019-04-21 14:05] LABS: BASOPHILS % 0.3 % (0.0-1.0); BILIRUBIN,URINE NEGATIVE (NEGATIVE); CLARITY,URINE CLEAR (CLEAR); COLOR,URINE OTHER (YELLOW); EOSINOPHILS # (AUTO) 0.3 (0.0-0.4); EOSINOPHILS % 2.6 % (0.0-6.0); HEMATOCRIT 43.5 % (34.2-44.1); HEMOGLOBIN 12.4 g/dL (12.0-16.0); KETONES,URINE NEGATIVE (NEGATIVE); LEUKOCYTE ESTERASE ,URINE TRACE (NEGATIVE); LYMPHOCYTES # (AUTO) 1.6 (1.0-3.2); LYMPHOCYTES % 14.5 % (18.0-39.1); MEAN CORPUSCULAR HEMOGLOBIN 23.1 pg (28-32); MEAN CORPUSCULAR HGB CONC 28.5 g/dL (31-35); MEAN CORPUSCULAR VOLUME 81.2 fL (81-99); MONOCYTES # (AUTO) 0.6 (0.2-0.8); MONOCYTES % 5.7 % (4.4-11.3); NEUTROPHILS # (AUTO) 8.4 (2.1-6.9); NEUTROPHILS % 76.4 % (38.7-80.0); NITRITE,URINE NEGATIVE (NEGATIVE); PLATELET COUNT 202 x10e3/uL (140-360); PROTEIN,URINE DIPSTICK NEGATIVE (NEGATIVE); RED BLOOD COUNT 5.36 x10e6/uL (3.6-5.1); RED CELL DISTRIBUTION WIDTH 16.2 % (11.7-14.4); URINE UROBILINOGEN 0.2 mg/dL (0.2 - 1)
[2019-04-21 14:17] LABS: INR 0.99; PROTHROMBIN TIME 13.6 seconds (11.9-14.5)
[2019-04-21 14:18] LABS: PARTIAL THROMBOPLASTIN TIME 27.2 seconds (23.8-35.5)
[2019-04-21 14:21] LABS: BACTERIA,URINE MODERATE /HPF; EPITHELIAL CELLS,URINE FEW /LPF; YEAST,URINE RARE
[2019-04-21] MEDS ORDERED: ONDANSETRON HCL INJ 2MG/ML 2ML 2 MG/ML VIAL IV ONE (14:30)
--- NOTE | 2019-04-21 15:09 | Diagnostic Imaging Report ---
EXAMINATION: CHEST SINGLE (PORTABLE) INDICATION: Nausea, vomiting COMPARISON: Multiple prior chest radiographs, most recently 08/29/2017 and dating back to 06/18/2017 FINDINGS: LINES/TUBES:EKG leads overlie the chest. LUNGS:The lungs are well-inflated. No focal consolidation or pulmonary edema. Unchanged right upper lung granuloma dating back to 06/18/2017. PLEURA:No pleural effusion or pneumothorax. MEDIASTINUM:The cardiomediastinal silhouette appears normal in size and shape. BONES/SOFT TISSUES:No acute osseous injury. ABDOMEN:No free air under the diaphragm. IMPRESSION: No focal pneumonia or pulmonary edema. Unchanged right lung granuloma. Signed by: Kimber Iyer MD on 04/21/2019 3:05 PM
--- NOTE | 2019-04-21 15:20 | Diagnostic Imaging Report ---
EXAM: CT Abdomen and Pelvis WITHOUT intravenous contrast INDICATION: Nausea, vomiting, abdominal pain COMPARISON: CT abdomen and pelvis of 08/29/2017 TECHNIQUE: Abdomen and pelvis were scanned utilizing a multidetector helical scanner from the lung base to the pubic symphysis without administration of IV contrast. Coronal and sagittal reformations were obtained. IV CONTRAST: None ORAL CONTRAST: Water COMPLICATIONS: None RADIATION DOSE: Total DLP: 804.7 mGy*cm Dose modulation, iterative reconstruction, and/or weight based adjustment of the mA/kV was utilized to reduce the radiation dose to as low as reasonably achievable. FINDINGS: LOWER THORAX: Normal. HEPATOBILIARY: No focal hepatic lesions. No biliary ductal dilatation. Status post cholecystectomy. SPLEEN: No splenomegaly. PANCREAS: No focal masses or ductal dilatation. ADRENALS: No adrenal nodules. KIDNEYS/URETERS: No hydronephrosis or renal calculi. No renal solid mass lesions. A 3 mm calcific density in the vicinity of the left distal ureter possibly represents a ureteral calculus versus a phlebolith. PELVIC ORGANS/BLADDER: Unremarkable. PERITONEUM / RETROPERITONEUM: No free air or fluid. LYMPH NODES: No lymphadenopathy. VESSELS: Scattered atherosclerotic calcifications of the nonaneurysmal abdominal aorta and major branches. GI TRACT: Postoperative findings of the stomach. Mild diverticulosis. No CT evidence of diverticulitis. No abnormal bowel thickening. No bowel obstruction. BONES AND SOFT TISSUES: No acute osseous injury. No suspicious lytic or blastic lesions. IMPRESSION: 3 mm calcific density in the vicinity of the left distal ureter was not present on the prior study of 08/29/2017 and may represent a distal ureteral calculus versus interval development of a phlebolith. No associated hydronephrosis or hydroureter. Signed by: Kimber Iyer MD on 04/21/2019 3:17 PM
[2019-04-21 15:31] LABS: ALANINE AMINOTRANSFERASE 23 IU/L (0-55); ALBUMIN 3.7 g/dL (3.5-5.0); ALBUMIN/GLOBULIN RATIO 0.9 (0.8-2.0); ALKALINE PHOSPHATASE 141 IU/L (40-150); ANION GAP 13.5 mmol/L (8-16); BLOOD UREA NITROGEN 24 mg/dL (7-26); BUN/CREATININE RATIO 24 (6-25); CALCIUM 9.7 mg/dL (8.4-10.2); CARBON DIOXIDE 31 mmol/L (22-29); CHLORIDE 104 mmol/L (98-107); CREATINE KINASE 37 IU/L (29-168); CREATININE, SERUM 1.01 mg/dL (0.57-1.11); EST GLOMERULAR FILTRATION RATE 54 ML/MIN (60-); POTASSIUM 3.5 mmol/L (3.5-5.1); SODIUM 145 mmol/L (136-145)
[2019-04-21 15:35] LABS: GLUCOSE 38 mg/dL (74-118)
[2019-04-21] MEDS ORDERED: DEXTROSE 50% SYRINGE 50 ML IV ONE ×2 (15:40→15:44)
[2019-04-21] MEDS ORDERED: CEFTRIAXONE SOD 1 GM/NS 50 ML 50 ML IV ONE (15:45)
[2019-04-21] MEDS ORDERED: MACROBID 100 M100 MG PO (16:49)
--- NOTE | 2019-04-21 17:43 | NUR ---
emelina at [facility] called for transport
[2019-04-21 18:42] VITALS: BP 142/74
== END 2019-04-21 19:04 | disposition home or self-care (01) ==
LOC: ER 13:13
DX: R10.9 Unspecified abdominal pain (principal); R11.2 Nausea with vomiting, unspecified; R19.7 Diarrhea, unspecified; N30.91 Cystitis, unspecified with hematuria
CPT/HCPCS: 36415; 71045; 74176; 80053; 81001; 82550; 82553; 82948; 83605; 83880; 84484; 85025; 85610; 85730; 87040; 93005; 99284; J0696; J7799

== ENCOUNTER 2019-05-02 11:56 | Observation (INO) | payer MEDICARE, OTHER ==
[~2019-05-02] VITALS: Ht 175.3 cm; Wt 147.4 kg
[2019-05-02] VITALS (7 sets, daily range): BP systolic 128–149; BP diastolic 65–83
[~2019-05-02 11:56] MED LIST changes: +MACROBID 100 M100 MG PO
--- NOTE | 2019-05-02 12:35 | NUR ---
pt ambulatory to [facility], obtained ua, per md wants to check pt with bladder scanner. three checks four different times all with 0 ml's; printed copy to md on chart...pt states here for her feet and did not know why we are checking her bladder....
[2019-05-02 12:52] LABS: BASOPHILS % 0.3 % (0.0-1.0); EOSINOPHILS # (AUTO) 0.2 (0.0-0.4); HEMATOCRIT 42.2 % (34.2-44.1); HEMOGLOBIN 12.5 g/dL (12.0-16.0); LYMPHOCYTES # (AUTO) 1.4 (1.0-3.2); LYMPHOCYTES % 14.3 % (18.0-39.1); MEAN CORPUSCULAR HEMOGLOBIN 23.5 pg (28-32); MEAN CORPUSCULAR HGB CONC 29.6 g/dL (31-35); MEAN CORPUSCULAR VOLUME 79.2 fL (81-99); MONOCYTES # (AUTO) 0.5 (0.2-0.8); MONOCYTES % 4.9 % (4.4-11.3); NEUTROPHILS # (AUTO) 7.8 (2.1-6.9); NEUTROPHILS % 77.9 % (38.7-80.0); PLATELET COUNT 165 x10e3/uL (140-360); RED BLOOD COUNT 5.33 x10e6/uL (3.6-5.1); RED CELL DISTRIBUTION WIDTH 15.9 % (11.7-14.4)
--- NOTE | 2019-05-02 13:00 | NUR ---
multiple warm blankets, ice water, tv remote, pillow, yellow socks all given for pt comfort/request.
[2019-05-02 13:19] LABS: BILIRUBIN,URINE NEGATIVE (NEGATIVE); CLARITY,URINE CLEAR (CLEAR); COLOR,URINE YELLOW (YELLOW); KETONES,URINE NEGATIVE (NEGATIVE); LEUKOCYTE ESTERASE ,URINE NEGATIVE (NEGATIVE); NITRITE,URINE NEGATIVE (NEGATIVE); PROTEIN,URINE DIPSTICK NEGATIVE (NEGATIVE); URINE UROBILINOGEN 0.2 mg/dL (0.2 - 1)
[2019-05-02 13:28] LABS: INR 1.03; PARTIAL THROMBOPLASTIN TIME 23.5 seconds (23.8-35.5)
[2019-05-02 13:40] LABS: ALBUMIN 3.5 g/dL (3.5-5.0); ALBUMIN/GLOBULIN RATIO 0.9 (0.8-2.0); ANION GAP 11.7 mmol/L (8-16); CALCIUM 9.1 mg/dL (8.4-10.2); CREATININE, SERUM 1.1 mg/dL (0.57-1.11); POTASSIUM 3.7 mmol/L (3.5-5.1)
[2019-05-02 13:42] LABS: BACTERIA,URINE FEW /HPF; EPITHELIAL CELLS,URINE MODERATE /LPF; YEAST,URINE FEW
--- NOTE | 2019-05-02 13:57 | NUR ---
PT BOARD GONE OVER ON ARRIVAL WITH PT BY RN, MD AND LOGGING SHOVEL OPERATOR. PT MULTIPLE TIMES BROOMCORN THRESHER MAY. PT STATES "IF I'DA KNOW HOW LONG YOU PEOPLE TAKE, I'D OF STAYED HOME AND GOTTEN TAKEN CARE OF." PT RE-EDUCATED AGAIN ON TIME ESTIMATES AND PLAN OF CARE. PT DEMANDING WANTING TO BE FED IMMEDATELY. ORDER PLACED FOR PT TO RECEIVE FOOD FOR PT SATISFACTION. PT UPDATED. VSS......
[2019-05-02] MEDS ORDERED: ONDANSETRON HCL INJ 2MG/ML 2ML 2 MG/ML VIAL IV PRN (14:30)
[2019-05-02] MEDS ORDERED: DEXTROSE 50% SYRINGE 50 ML IV PRN (14:30)
[2019-05-02] MEDS ORDERED: MORPHINE SULFATE 2 MG/ML SYR 1ML IV PRN ×2 (14:30→20:30)
[2019-05-02] MEDS ORDERED: NITROGLYCERIN 0.4 MG SUBL SL PRN (14:30)
[2019-05-02] MEDS: FAMOTIDINE 20 MG/2 ML VIAL IV SCH (14:58)
--- NOTE | 2019-05-02 15:04 | NUR ---
PT SUPERVISOR SANDING AMY MULTIPLE TIMES AN HOUR. EACH REYES ANSWERED AND HAVE TO RE TELL PT EXACTLY WHAT WAS JUST TOLD TO HER. PT STATES NO ONE HAS COME INTO HER ROOM EVEN ONCE. LEANNE, RN, PASTE PLANT SUPERVISOR AND MD ALL IN ROOM MULTIPLE TIMES. PT STATES SHE IS ADMITTED BECAUSE HER FOOT HAS A CRACK FROM FLUID..... PT NOTED TO HAVE BILATERAL VENOUS STATIS AND IS MORBIDLY OBESES. PT STATES NO CP.
--- NOTE | 2019-05-02 15:09 | NUR ---
WANTING TO LEAVE MD KAIDEN NOTIFIED, TALKED WITH PT AT GREAT LENGTH.
--- NOTE | 2019-05-02 15:12 | NUR ---
NOW PT WANTS TO STAY FOR ADMISSION
--- NOTE | 2019-05-02 15:26 | Diagnostic Imaging Report ---
EXAMINATION: CHEST SINGLE (PORTABLE) INDICATION: Shortness of breath, chest pain COMPARISON: Chest radiograph 04/21/2019 FINDINGS: LINES/TUBES:EKG leads overlie the chest. LUNGS:The lungs are well-inflated. No focal consolidation or pulmonary edema. Unchanged right lung granuloma. PLEURA:No pleural effusion or pneumothorax. MEDIASTINUM:The cardiomediastinal silhouette appears normal in size and shape. BONES/SOFT TISSUES:No acute osseous injury. ABDOMEN:No free air under the diaphragm. IMPRESSION: No focal pneumonia or pulmonary edema. Signed by: Kimber Iyer MD on 05/02/2019 3:23 PM
[2019-05-02] MEDS: INSULIN LISPRO 100 UNIT/1 ML 3ML VIAL SQ SCH ×2 (16:30→20:01)
[2019-05-02] MEDS ORDERED: ACETAMINOPHEN 325 MG TAB PO PRN (19:15)
[2019-05-02] MEDS ORDERED: HYDRALAZINE HCL 20 MG/ML VIAL IV PRN (19:15)
[2019-05-02] MEDS ORDERED: TEMAZEPAM 15 MG CAP PO PRN (19:15)
[2019-05-02] MEDS: CARVEDILOL 12.5 MG TAB PO SCH (19:56)
[2019-05-02] MEDS: DIVALPROEX SODIUM 250 MG TAB...DR PO SCH (19:56)
[2019-05-02] MEDS: GABAPENTIN 100 MG CAP PO SCH (19:56)
[2019-05-02] MEDS ORDERED: ATORVASTATIN 10 MG TAB PO SCH (21:00)
[2019-05-02] MEDS ORDERED: QUETIAPINE FUMARATE 25 MG TAB PO SCH (21:00)
[2019-05-02 21:15] LABS: CREATINE KINASE MB 1.6 ng/mL (0-5.0)
[2019-05-03 00:48] VITALS: BP 129/87
[2019-05-03] MEDS: FAMOTIDINE 20 MG/2 ML VIAL IV SCH (03:35)
[2019-05-03 03:39] LABS: BASOPHILS % 0.5 % (0.0-1.0); EOSINOPHILS # (AUTO) 0.1 (0.0-0.4); HEMATOCRIT 38.1 % (34.2-44.1); HEMOGLOBIN 11.2 g/dL (12.0-16.0); LYMPHOCYTES # (AUTO) 1.4 (1.0-3.2); LYMPHOCYTES % 22.7 % (18.0-39.1); MEAN CORPUSCULAR HEMOGLOBIN 23.4 pg (28-32); MEAN CORPUSCULAR HGB CONC 29.4 g/dL (31-35); MEAN CORPUSCULAR VOLUME 79.5 fL (81-99); MONOCYTES # (AUTO) 0.3 (0.2-0.8); MONOCYTES % 5.6 % (4.4-11.3); NEUTROPHILS # (AUTO) 4.2 (2.1-6.9); NEUTROPHILS % 68.7 % (38.7-80.0); PLATELET COUNT 107 x10e3/uL (140-360); RED BLOOD COUNT 4.79 x10e6/uL (3.6-5.1); RED CELL DISTRIBUTION WIDTH 15.9 % (11.7-14.4)
[2019-05-03 03:55] LABS: CREATINE KINASE 20 IU/L (29-168)
[2019-05-03 03:58] LABS: ALBUMIN 2.9 g/dL (3.5-5.0); ANION GAP 9.1 mmol/L (8-16); CALCIUM 8.6 mg/dL (8.4-10.2); CREATININE, SERUM 1.09 mg/dL (0.57-1.11); POTASSIUM 4.1 mmol/L (3.5-5.1)
[2019-05-03 04:00] VITALS: BP 123/70
[2019-05-03 04:09] LABS: B-TYPE NATRIURETIC PEPTIDE2 18.5 pg/mL (0-100)
[2019-05-03 04:19] LABS: THYROID STIMULATING HORMONE 2.249 uIU/mL (0.350-4.940)
[2019-05-03] MEDS ORDERED: HYDROCHLOROTHIA25 MG PO (06:43)
[2019-05-03 07:18] VITALS: BP 126/80
[2019-05-03] MEDS: DIVALPROEX SODIUM 250 MG TAB...DR PO SCH (08:13)
[2019-05-03] MEDS: GABAPENTIN 100 MG CAP PO SCH (08:13)
[2019-05-03] MEDS: CARVEDILOL 12.5 MG TAB PO SCH (08:13)
[2019-05-03] MEDS ORDERED: AMLODIPINE BESYLATE 10 MG TAB PO SCH (09:00)
[2019-05-03] MEDS ORDERED: DULOXETINE HCL 30 MG DELAYED RELEASE PO SCH (09:00)
[2019-05-03] MEDS ORDERED: HYDROCHLOROTHIAZIDE 25 MG TAB PO SCH (09:00)
[2019-05-03] MEDS ORDERED: METFORMIN HCL 500 MG TAB PO SCH (09:00)
[2019-05-03] MEDS ORDERED: ASPIRIN 81 MG ENTERIC COATED PO SCH (09:00)
[2019-05-03] MEDS ORDERED: MEMANTINE 10 MG TAB PO SCH (09:00)
[2019-05-03 09:16] VITALS: BP 126/80
--- NOTE | 2019-05-03 10:45 | NUR ---
ASSESSMENT: Spiritual concern Pt reflecting on life experiences and family. Intervention: Provided unhurried empathic listening and hospitality. Provided prayer and information on how to reach health science specialist, if needed. Outcome: Pt expressed appreciation for visit. No need to follow at this time. DONOVAN CARRERA [employer] Spiritual Care Department O: [phone] Pager: [phone] ([phone] number calling from)
[2019-05-03 11:38] VITALS: BP 121/66
[2019-05-03 15:29] VITALS: BP 128/79
--- NOTE | 2019-05-04 12:01 | Discharge Summary ---
ADMISSION DIAGNOSES: 1. Bilateral lower extremity edema, trace. 2. Hypertension. 3. Type 2 diabetes. 4. Anxiety. 5. Depression. 6. Morbid obesity with a BMI of 48. 7. Insomnia. 8. Dementia. DISCHARGE DIAGNOSES: 1. Bilateral lower extremity edema, trace. 2. Hypertension. 3. Type 2 diabetes. 4. Anxiety. 5. Depression. 6. Morbid obesity with a BMI of 48. 7. Insomnia. 8. Dementia. HISTORY: Hypertension, type 2 diabetes, dementia, insomnia, anxiety, depression, hep C, and chronic pain. SURGICAL HISTORY: Bariatric surgery, hernia repair, and x2. FAMILY HISTORY: The patient's brother has diabetes. SOCIAL HISTORY: Noncontributory. HOSPITAL COURSE: A 74-year-old female admits with complaints of generalized swelling for weeks. She also complains of chest pain for the last 2-3 weeks. She has associated shortness of breath and dizziness. Her primary concern seems to be the swelling. On admission, EKG was normal sinus rhythm. Troponin was negative x3. Echo showed EF of 50% to 55%. BNP was within normal limits. Bilateral venous Doppler was negative for DVT. Chest x-ray was negative for pneumonia or edema. The patient will be discharged home with new prescriptions for hydrochlorothiazide. The patient and daughter seem to be really concerned about the edema, even demanding that the patient had a Norton placed to remove the fluid. I spoke with the daughter at length about the plan and advised that the patient elevate her legs in attempt to lose weight and limit her fluid intake. The patient's daughter says that they tried to tell her that, but she does not listen. The patient will be discharged home and follow up with primary care in 1 to 2 weeks. Daughter understands discharge instructions and agrees to plan. Dictated by Anamika De La Fuente NP MD GABBY Tinsley/LE /[id number]
== END 2019-05-03 16:10 | disposition home or self-care (01) ==
LOC: ER 11:56 → ERHOLD 14:33 → IMCU 17:49
PROVIDERS: ADMIT Internal Medicine; ATTEND Internal Medicine
DX: R60.0 Localized edema (principal); I10 Essential (primary) hypertension; E66.01 Morbid (severe) obesity due to excess calories; Z68.42 Body mass index [BMI] 45.0-49.9, adult; G47.00 Insomnia, unspecified; F41.9 Anxiety disorder, unspecified; F32.9 Major depressive disorder, single episode, unspecified; F03.90 Unspecified dementia, unspecified severity, without behavioral disturbance, psychotic disturbance, mood disturbance, and anxiety; E11.9 Type 2 diabetes mellitus without complications
CPT/HCPCS: 36415 ×2; 71045; 80053 ×2; 80061; 81001; 82550 ×2; 82553 ×2; 82948 ×2; 83036; 83735; 83880 ×2; 84443; 84484 ×2; 85025 ×2; 85610; 85730; 87086; 87186; 93005; 93306; 93970; 96372; 97161; 99284; G0378 ×2

== ENCOUNTER 2019-07-30 14:02 | Emergency (ER) | payer MEDICARE, OTHER ==
[~2019-07-30] VITALS: Ht 175.3 cm; Wt 147.4 kg
[~2019-07-30 14:02] MED LIST changes: +HYDROCHLOROTHIA25 MG PO
[2019-07-30] MEDS ORDERED: DEXTROSE 50% SYRINGE 50 ML IV ONE ×2 (14:09→14:18)
[2019-07-30] MEDS ORDERED: DEXTROSE 5%/0.45% SOD CHL 1,000 ML IV ONE (14:15)
[2019-07-30] MEDS ORDERED: NALOXONE HCL 2MG/2 ML SYRINGE ONE (14:21)
[2019-07-30 14:43] LABS: BASOPHILS % 0.3 % (0.0-1.0); EOSINOPHILS # (AUTO) 0.3 (0.0-0.4); EOSINOPHILS % 2.8 % (0.0-6.0); HEMATOCRIT 45.3 % (34.2-44.1); HEMOGLOBIN 13.5 g/dL (12.0-16.0); LYMPHOCYTES # (AUTO) 1.7 (1.0-3.2); LYMPHOCYTES % 16.8 % (18.0-39.1); MEAN CORPUSCULAR HEMOGLOBIN 24.3 pg (28-32); MEAN CORPUSCULAR HGB CONC 29.8 g/dL (31-35); MEAN CORPUSCULAR VOLUME 81.5 fL (81-99); MONOCYTES # (AUTO) 0.8 (0.2-0.8); MONOCYTES % 7.7 % (4.4-11.3); NEUTROPHILS # (AUTO) 7.3 (2.1-6.9); NEUTROPHILS % 70.7 % (38.7-80.0); PLATELET COUNT 154 x10e3/uL (140-360); RED BLOOD COUNT 5.56 x10e6/uL (3.6-5.1)
--- NOTE | 2019-07-30 14:53 | NUR ---
BLANKET WARMER PLACED ON PATIENT. TEMP 95.5
[2019-07-30 15:21] LABS: INR 0.92; PARTIAL THROMBOPLASTIN TIME 21.3 seconds (23.8-35.5); PROTHROMBIN TIME 12.9 seconds (11.9-14.5)
[2019-07-30 15:31] LABS: ALBUMIN 3.4 g/dL (3.5-5.0); ALBUMIN/GLOBULIN RATIO 1.2 (0.8-2.0); ANION GAP 12.4 mmol/L (8-16); CALCIUM 8.7 mg/dL (8.4-10.2); CREATININE, SERUM 0.93 mg/dL (0.57-1.11); POTASSIUM 3.4 mmol/L (3.5-5.1)
[2019-07-30 15:32] LABS: SALICYLATE < 5.0 mg/dL (0-30)
[2019-07-30 15:37] LABS: CREATINE KINASE MB 2.9 ng/mL (0-5.0)
--- NOTE | 2019-07-30 16:18 | NUR ---
PATIENT SITTING UP EATING MEAL TRAY
[2019-07-30 16:23] LABS: AMPHETAMINES SCREEN,URINE NEGATIVE (NEGATIVE); BENZODIAZEPINES SCREEN,URINE NEGATIVE (NEGATIVE); PHENCYCLIDINE SCREEN,URINE NEGATIVE (NEGATIVE)
[2019-07-30 16:24] LABS: CLARITY,URINE SL CLOUDY (CLEAR); COLOR,URINE YELLOW (YELLOW)
[2019-07-30 16:25] LABS: BILIRUBIN,URINE NEGATIVE (NEGATIVE); KETONES,URINE NEGATIVE (NEGATIVE); LEUKOCYTE ESTERASE ,URINE NEGATIVE (NEGATIVE); NITRITE,URINE NEGATIVE (NEGATIVE); PROTEIN,URINE DIPSTICK NEGATIVE (NEGATIVE); URINE UROBILINOGEN 0.2 mg/dL (0.2 - 1)
[2019-07-30 16:30] LABS: EPITHELIAL CELLS,URINE FEW /LPF
[2019-07-30] MEDS ORDERED: NALOXONE HCL INJ 0.4 MG/ML AMP IV ONE (16:30)
[2019-07-30] MEDS ORDERED: PREGABALIN50 MG PO (17:14)
[2019-07-30] MEDS ORDERED: ATORVASTATIN CA40 MG PO (17:14)
[2019-07-30] MEDS ORDERED: TIZANIDINE HCL4 MG PO (17:14)
[2019-07-30] MEDS ORDERED: PROAIR HFA INH8.5 GM IH (17:14)
[2019-07-30] MEDS ORDERED: FUROSEMIDE40 MG PO (17:14)
[2019-07-30] MEDS ORDERED: QUETIAPINE FUMA50 MG PO (17:14)
[2019-07-30] MEDS ORDERED: LOSARTAN POTASS50 MG (17:14)
[2019-07-30] MEDS ORDERED: NIFEDIPINE10 MG PO (17:14)
[2019-07-30] MEDS ORDERED: CYCLOBENZAPRINE10 MG PO (17:14)
[2019-07-30] MEDS ORDERED: MOBIC15 MG (17:14)
[2019-07-30] MEDS ORDERED: DONEPEZIL HCL10 MG PO (17:14)
--- NOTE | 2019-07-30 18:01 | NUR ---
PATIENT CONTINUES MULITPLE TIMES TO PULL BLANKET WARMER DOWN. RE-INFORCE TO HER TO KEEP UP ON HER
--- NOTE | 2019-07-30 18:43 | NUR ---
D5 STOPPED. RECHECK BLOOD SUGAR IN 30 MIN
--- NOTE | 2019-07-30 18:44 | Diagnostic Imaging Report ---
EXAMINATION: CHEST SINGLE (PORTABLE) INDICATION: ^ams ^[id number] ^[id number] COMPARISON: 07/04/2019 FINDINGS: AP view TUBES and LINES: None. LUNGS: Lungs are well inflated. There is no evidence of pneumonia or pulmonary edema. Right midlung calcified granuloma is unchanged. PLEURA: No pleural effusion or pneumothorax. HEART AND MEDIASTINUM: The cardiomediastinal silhouette is unremarkable. BONES AND SOFT TISSUES: No acute osseous lesion. Soft tissues are unremarkable. UPPER ABDOMEN: No free air under the diaphragm. IMPRESSION: No acute thoracic abnormality. Signed by: Kike Arnett MD on 07/30/2019 6:42 PM
--- NOTE | 2019-07-30 18:45 | Diagnostic Imaging Report ---
Exam: Head CT without contrast History: Altered mental status Comparison studies: Prior head CT 06/18/2017 is unavailable on the PACS for comparison the time of dictation. Technique: Axial images were obtained from the skull base to the vertex. Coronal and sagittal images reconstructed from the axial data. Dose modulation, iterative reconstruction, and/or weight based adjustment of the mA/kV was utilized to reduce the radiation dose to as low as reasonably achievable. Radiation dose: Total DLP: 832 mGy*cm. Estimated effective dose: DLP x 0.015 Intravenous contrast: None Findings: Scalp: No abnormalities. Bones: No fractures, blastic or lytic lesions. Brain sulci: Mildly prominent. Ventricles: Mild compensatory dilatation. No hydrocephalus. Extra-axial spaces: No masses, no fluid collection. Parenchyma: No mass, acute hemorrhage or acute or chronic cortical insults. A few scattered ill-defined and mildly confluent hypodensities in the supratentorial white matter are nonspecific but are most compatible with chronic microvascular ischemic changes. Sellar/suprasellar region: No abnormalities. Craniocervical junction: Patent foramen magnum. No Chiari one malformation. Included paranasal sinuses: Clear. Middle ear and included mastoid cavities: Clear. IMPRESSION: No acute intracranial abnormalities. Chronic findings: 1. Mild generalized parenchymal volume loss. 2. Moderate microvascular ischemic changes. Signed by: Dr. Guanakito Parsons M.D. on 07/30/2019 6:43 PM
--- NOTE | 2019-07-30 19:14 | NUR ---
BEDSIDE REPORT TO RIP Samson TEMP 97.9 ORAL, BARE HUGGER REMOVED
[2019-07-30 20:52] VITALS: BP 125/73
== END 2019-07-30 20:54 | disposition home or self-care (01) ==
LOC: ER 14:02
DX: R41.82 Altered mental status, unspecified (principal); E11.649 Type 2 diabetes mellitus with hypoglycemia without coma; F03.90 Unspecified dementia, unspecified severity, without behavioral disturbance, psychotic disturbance, mood disturbance, and anxiety; I10 Essential (primary) hypertension; M79.7 Fibromyalgia
CPT/HCPCS: 36415; 70450; 71045; 80053; 80307; 80320; 80329 ×2; 81001; 82550; 82553; 82948; 83735; 83880; 84484; 85025; 85610; 85730; 87040; 87086; 93005; 99284; J2310; J7799

== ENCOUNTER 2019-08-10 13:01 | Emergency (ER) | payer MEDICARE, OTHER ==
[~2019-08-10] VITALS: Ht 175.3 cm; Wt 147.4 kg
[~2019-08-10 13:01] MED LIST changes: +ATORVASTATIN CA40 MG PO; +CYCLOBENZAPRINE10 MG PO; +DONEPEZIL HCL10 MG PO; +FUROSEMIDE40 MG PO; +LOSARTAN POTASS50 MG; +MOBIC15 MG; +NIFEDIPINE10 MG PO; +PREGABALIN50 MG PO; +PROAIR HFA INH8.5 GM IH; +QUETIAPINE FUMA50 MG PO; +TIZANIDINE HCL4 MG PO
[2019-08-10 14:21] LABS: BASOPHILS % 0.3 % (0.0-1.0); EOSINOPHILS # (AUTO) 0.1 (0.0-0.4); EOSINOPHILS % 1.9 % (0.0-6.0); HEMATOCRIT 39.6 % (34.2-44.1); LYMPHOCYTES % 17.3 % (18.0-39.1); MEAN CORPUSCULAR HEMOGLOBIN 24.8 pg (28-32); MEAN CORPUSCULAR HGB CONC 30.3 g/dL (31-35); MONOCYTES # (AUTO) 0.4 (0.2-0.8); MONOCYTES % 7.4 % (4.4-11.3); NEUTROPHILS # (AUTO) 4.2 (2.1-6.9); NEUTROPHILS % 72.6 % (38.7-80.0); PLATELET COUNT 113 x10e3/uL (140-360); RED BLOOD COUNT 4.83 x10e6/uL (3.6-5.1); RED CELL DISTRIBUTION WIDTH 15.2 % (11.7-14.4)
[2019-08-10 14:35] LABS: ALANINE AMINOTRANSFERASE 17 IU/L (0-55); ALBUMIN 3.1 g/dL (3.5-5.0); ALKALINE PHOSPHATASE 101 IU/L (40-150); ANION GAP 10.3 mmol/L (8-16); BLOOD UREA NITROGEN 10 mg/dL (7-26); BUN/CREATININE RATIO 12 (6-25); CALCIUM 8.8 mg/dL (8.4-10.2); CARBON DIOXIDE 32 mmol/L (22-29); CHLORIDE 105 mmol/L (98-107); CREATINE KINASE 21 IU/L (29-168); CREATININE, SERUM 0.82 mg/dL (0.57-1.11); EST GLOMERULAR FILTRATION RATE > 60 ML/MIN (60-); GLUCOSE 121 mg/dL (74-118); POTASSIUM 3.3 mmol/L (3.5-5.1); SODIUM 144 mmol/L (136-145)
--- NOTE | 2019-08-10 14:35 | Diagnostic Imaging Report ---
EXAMINATION: CHEST SINGLE (PORTABLE) INDICATION: Chest pain COMPARISON: 07/30/2019 FINDINGS: AP view TUBES and LINES: None. LUNGS: Lungs are well inflated. Unchanged right midlung calcified granuloma. No focal consolidation. There is no evidence of pneumonia or pulmonary edema. PLEURA: No pleural effusion or pneumothorax. HEART AND MEDIASTINUM: The cardiomediastinal silhouette is unremarkable. BONES AND SOFT TISSUES: No acute osseous lesion. Soft tissues are unremarkable. UPPER ABDOMEN: No free air under the diaphragm. IMPRESSION: Stable exam. No acute thoracic radiographic abnormality. Signed by: Shayne Nguyen MD on 08/10/2019 2:33 PM
--- NOTE | 2019-08-10 18:52 | NUR ---
Called lab regarding pending CE results, paving and surfacing labourer reports that labs were moved to 2200 and were not run when dropped off approx 1.5 hr ago. Lab will run labs stat. Dr. Maloney notified.
[2019-08-10 19:10] LABS: CREATINE KINASE MB 1.3 ng/mL (0-5.0)
[2019-08-10] MEDS ORDERED: POTASSIUM CHLORIDE 20 MEQ TAB CR PO STA (19:42)
--- NOTE | 2019-08-10 21:01 | NUR ---
[facility] ambulance called for transport to [facility] in [place], current ETA 15-20 min.
--- NOTE | 2019-08-10 21:31 | NUR ---
Bedside report given to [facility] EMT at this time, Pt to be transported to [facility].
== END 2019-08-10 21:40 | disposition home or self-care (01) ==
LOC: ER 13:01
DX: R07.89 Other chest pain (principal); I10 Essential (primary) hypertension; E11.9 Type 2 diabetes mellitus without complications; F03.90 Unspecified dementia, unspecified severity, without behavioral disturbance, psychotic disturbance, mood disturbance, and anxiety; M79.7 Fibromyalgia
CPT/HCPCS: 36415; 71045; 80053; 82550; 82553; 82948; 84484; 85025; 93005; 99285

== ENCOUNTER 2019-08-11 12:58 | Inpatient (IN) | payer MEDICARE, OTHER ==
[~2019-08-11] VITALS: Ht 175.3 cm; Wt 131.3 kg
[2019-08-11 14:46] LABS: BASOPHILS % 0.4 % (0.0-1.0); EOSINOPHILS # (AUTO) 0.1 (0.0-0.4); EOSINOPHILS % 1.5 % (0.0-6.0); HEMOGLOBIN 12.3 g/dL (12.0-16.0); LYMPHOCYTES # (AUTO) 0.7 (1.0-3.2); LYMPHOCYTES % 13.4 % (18.0-39.1); MEAN CORPUSCULAR HEMOGLOBIN 24.7 pg (28-32); MEAN CORPUSCULAR VOLUME 82.5 fL (81-99); MONOCYTES # (AUTO) 0.4 (0.2-0.8); MONOCYTES % 6.7 % (4.4-11.3); NEUTROPHILS # (AUTO) 4.2 (2.1-6.9); NEUTROPHILS % 77.6 % (38.7-80.0); PLATELET COUNT 113 x10e3/uL (140-360); RED BLOOD COUNT 4.97 x10e6/uL (3.6-5.1); RED CELL DISTRIBUTION WIDTH 15.4 % (11.7-14.4)
[2019-08-11 14:54] LABS: BILIRUBIN,URINE NEGATIVE (NEGATIVE); CLARITY,URINE SL CLOUDY (CLEAR); COLOR,URINE YELLOW (YELLOW); KETONES,URINE TRACE (NEGATIVE); LEUKOCYTE ESTERASE ,URINE NEGATIVE (NEGATIVE); NITRITE,URINE NEGATIVE (NEGATIVE); PROTEIN,URINE DIPSTICK NEGATIVE (NEGATIVE); URINE UROBILINOGEN 0.2 mg/dL (0.2 - 1)
[2019-08-11 14:56] LABS: INR 0.96; PROTHROMBIN TIME 13.4 seconds (11.9-14.5)
[2019-08-11 14:59] LABS: PARTIAL THROMBOPLASTIN TIME 20.3 seconds (23.8-35.5)
[2019-08-11 15:04] LABS: ALBUMIN 3.2 g/dL (3.5-5.0); ANION GAP 13.1 mmol/L (8-16); CALCIUM 8.9 mg/dL (8.4-10.2); CREATININE, SERUM 0.95 mg/dL (0.57-1.11); POTASSIUM 4.1 mmol/L (3.5-5.1)
[2019-08-11 15:10] LABS: CREATINE KINASE MB 2.2 ng/mL (0-5.0)
--- NOTE | 2019-08-11 15:10 | Diagnostic Imaging Report ---
Chest, 1 view, 08/11/2019. History: Shortness of breath and chest pain. Comparison: 08/10/2019. Findings: The cardiomediastinal silhouette and pulmonary vasculature are within normal limits for a portable exam. There is no focal consolidation or pleural effusion. Right upper lobe calcified granuloma is again noted. There are no acute osseous or soft tissue abnormalities. Impression: No acute cardiopulmonary abnormality. Signed by: Eugenio Jaquez on 08/11/2019 3:08 PM
[2019-08-11 15:11] LABS: BACTERIA,URINE FEW /HPF; EPITHELIAL CELLS,URINE FEW /LPF
[2019-08-11] MEDS ORDERED: SODIUM CHLORIDE 0.9% 1000ML 1,000 ML IV STA (15:11)
[2019-08-11] MEDS ORDERED: INSULIN LISPRO 100 UNIT/1 ML 3ML VIAL SQ ONE (15:15)
[2019-08-11] MEDS ORDERED: ONDANSETRON HCL INJ 2MG/ML 2ML 2 MG/ML VIAL IV PRN (15:30)
[2019-08-11] MEDS ORDERED: CEFTRIAXONE SOD 1 GM/NS 50 ML 50 ML IV ONE (16:00)
[2019-08-11] MEDS: SODIUM CHLORIDE 0.9% 1000ML 1,000 ML IV SCH (19:46)
[2019-08-12 01:24] LABS: CREATINE KINASE MB 1.6 ng/mL (0-5.0)
--- NOTE | 2019-08-12 02:50 | NUR ---
Witnessed Pt remove PIV, severe confusion noted, attempting to leave facility, concerns for Pt safety, received orders from hospitalist to medicate at this time, see eMAR.
[2019-08-12] MEDS ORDERED: HALOPERIDOL LACTATE 5 MG/ML VIAL IM ONE (03:00)
[2019-08-12 06:28] LABS: BASOPHILS % 0.3 % (0.0-1.0); EOSINOPHILS # (AUTO) 0.1 (0.0-0.4); EOSINOPHILS % 2.2 % (0.0-6.0); HEMATOCRIT 34.4 % (34.2-44.1); HEMOGLOBIN 10.6 g/dL (12.0-16.0); LYMPHOCYTES # (AUTO) 0.9 (1.0-3.2); MEAN CORPUSCULAR HEMOGLOBIN 25.1 pg (28-32); MEAN CORPUSCULAR HGB CONC 30.8 g/dL (31-35); MEAN CORPUSCULAR VOLUME 81.3 fL (81-99); MONOCYTES # (AUTO) 0.3 (0.2-0.8); MONOCYTES % 6.9 % (4.4-11.3); NEUTROPHILS # (AUTO) 2.3 (2.1-6.9); PLATELET COUNT 114 x10e3/uL (140-360); RED BLOOD COUNT 4.23 x10e6/uL (3.6-5.1); RED CELL DISTRIBUTION WIDTH 15.1 % (11.7-14.4)
[2019-08-12 06:43] LABS: ALANINE AMINOTRANSFERASE 16 IU/L (0-55); ALBUMIN 2.7 g/dL (3.5-5.0); ALKALINE PHOSPHATASE 90 IU/L (40-150); ANION GAP 8.8 mmol/L (8-16); BLOOD UREA NITROGEN 10 mg/dL (7-26); BUN/CREATININE RATIO 13 (6-25); CALCIUM 8.1 mg/dL (8.4-10.2); CARBON DIOXIDE 27 mmol/L (22-29); CHLORIDE 109 mmol/L (98-107); CHOL/HDL RATIO 3.9 (3.0-3.6); CHOLESTEROL 124 MD/DL (0-199); CREATININE, SERUM 0.77 mg/dL (0.57-1.11); EST GLOMERULAR FILTRATION RATE > 60 ML/MIN (60-); GLUCOSE 262 mg/dL (74-118); HDL CHOLESTEROL 32 MG/DL (40-60); LDL CHOLESTEROL 72 MG/DL (60-130); POTASSIUM 3.8 mmol/L (3.5-5.1); SODIUM 141 mmol/L (136-145); TRIGLYCERIDES 102 MG/DL (0-149)
[2019-08-12 07:07] LABS: CREATINE KINASE MB 1.4 ng/mL (0-5.0)
[2019-08-12] MEDS: SODIUM CHLORIDE 0.9% 1000ML 1,000 ML IV SCH (07:09)
[2019-08-12] MEDS: ASPIRIN 81 MG ENTERIC COATED PO SCH (07:09)
--- NOTE | 2019-08-12 07:16 | NUR ---
pt sleeping, awakes, knows name,place, year. vss. pt with no chief complaints presently
--- NOTE | 2019-08-12 09:33 | NUR ---
MET WITH DR. BROCK. HE STATED PT REMAINS W/ AMS AND IS NOT AT BASELINE STATUS MENTALLY. SHE IS NOT SAFE TO RETURN TO ASSISTED FACILITY DUE TO INABLITY TO CARE FOR SELF, AND TAKE HER MEDICATIONS PRESCRIBED. HE MAY CHANGE HER TO INPATIENT STATUS IF SHE REMAINS W/ AMS. REQUESTED CM/SW SPEAK WITH FAMILY ABOUT PLACING IN MEMORY CARE UNIT.
[2019-08-12] MEDS ORDERED: DEXTROSE 50% SYRINGE 50 ML IV PRN ×2 (11:15→13:45)
--- NOTE | 2019-08-12 11:59 | NUR ---
b.s. of 332-insulin sliding scale ordered and pt not eating at this time; no insulin coverage given
--- NOTE | 2019-08-12 12:03 | NUR ---
insulin coverage given-12 units of reg. insulin
[2019-08-12] MEDS: INSULIN REGULAR, HUMAN 100 UNIT/1 ML 3ML VIAL SQ SCH ×3 (12:15→20:45)
--- NOTE | 2019-08-12 12:21 | NUR ---
JOSE ROSE (DAUGHTER) [phone] RETURNED CALLED. SHE GAVE TELEPHONE CONSENT FOR CHOICE LETTER AND IMM. SHE WAS EDUCATED ON IMM AND VERBALIZED UNDERSTANDING. HER CHOICE FOR MEMORY CARE UNIT: [facility]. SHE HAS ALREADY BEEN IN CONTACT WITH THEM AND HAS STARTED PAPER WORK [facility] [id number] [facility] [address] [facility] [phone]
--- NOTE | 2019-08-12 13:21 | NUR ---
all linens changed. bedpan changed. bowel movement large, loose.
--- NOTE | 2019-08-12 14:48 | NUR ---
report called to tanya kirkpatrick for this pt. to go to 202
--- NOTE | 2019-08-12 15:08 | NUR ---
RECEIVED PATIENT FROM ER. PATIENT A/O X3, EVEN RESPIRATIONS ON RA. NO SIGNS OF DISTRESS. TELEMETRY #29 SR. BOWEL SOUNDS PRESENT. PATIENT AMBULATES WITH WALKER. PAIN 8/10 TO LOWER BACK. RIGHT WRIST 20 GAUGE IV PATENT. ORIENTED PATIENT TO ROOM AND CALL LIGHT. BED LOW, WHEELS LOCKED, SIDE RAILS X2. CALL LIGHT IN REACH WILL CONTINUE TO MONITOR PATIENT.
--- NOTE | 2019-08-12 15:56 | NUR ---
Spoke with daughter Katy to confirm home medications.
[2019-08-12] MEDS ORDERED: AMLODIPINE BESYLATE 10 MG TAB PO NR (16:00)
[2019-08-12 16:02] VITALS: BP 187/84
[2019-08-12 16:03] VITALS: BP 187/84
[2019-08-12 16:13] VITALS: BP 187/84
[2019-08-12] MEDS ORDERED: TIZANIDINE HCL 4 MG TAB PO PRN (17:00)
[2019-08-12] MEDS ORDERED: INSULIN REGULAR, HUMAN 100 UNIT/1 ML 3ML VIAL SQ NR (17:00)
[2019-08-12] MEDS: CARVEDILOL 12.5 MG TAB PO SCH (18:01)
[2019-08-12] MEDS: DULOXETINE HCL 30 MG DELAYED RELEASE PO SCH (18:01)
[2019-08-12] MEDS: ACETAMINOPHEN 325 MG TAB PO PRN (18:01)
[2019-08-12] MEDS: METFORMIN HCL 500 MG TAB PO SCH (18:01)
[2019-08-12] MEDS: MEMANTINE 10 MG TAB PO SCH (18:01)
--- NOTE | 2019-08-12 19:20 | NUR ---
Patient received sitting up in bed. AAO x 3. Patient had no complaints of pain. Respirations even and non-labored. Fall precautions implemented. Patient instructed to call for assistance when needed. Call light within reach. Addendum: 08/13/19 at 2329 by Gema Ramirez RN Note: Please disregard note. Reason: Wrong date
[2019-08-12 20:26] LABS: CREATINE KINASE MB 1.8 ng/mL (0-5.0)
[2019-08-12 20:30] VITALS: BP 159/74
[2019-08-12 20:45] VITALS: BP 159/74
[2019-08-12] MEDS: GABAPENTIN 100 MG CAP PO SCH (20:45)
[2019-08-12] MEDS: DIVALPROEX SODIUM 250 MG TAB...DR PO SCH (20:45)
[2019-08-12] MEDS: QUETIAPINE FUMARATE 25 MG TAB PO SCH (20:45)
[2019-08-12] MEDS: DONEPEZIL HCL 5 MG TAB PO SCH (20:45)
--- NOTE | 2019-08-12 20:45 | NUR ---
PATIENT IS IN STABLE CONDITION, NO SIGNS OF DISTRESS NOTED. PATIENT UNDER ISOLATION FOR BED BUGS AND PROTECTION IS WORN PER PROTOCOL. PATIENT VOICES PAIN IN NECK AND BACK AT A LEVEL OF 7 AND WILL BE MEDICATED ORDERED. BED IS IN LOWEST POSITION, BOTH SIDE RAILS ARE UP, CALL LIGHT IS WITHIN EASY REACH, WILL CONTINUE TO MONITOR.
[2019-08-12] MEDS ORDERED: TEMAZEPAM 15 MG CAP PO PRN (21:00)
[2019-08-12] MEDS ORDERED: ATORVASTATIN 10 MG TAB PO SCH (21:00)
[2019-08-12] MEDS ORDERED: QUETIAPINE FUMARATE 25 MG TAB PO SCH (21:00)
[2019-08-13] VITALS (8 sets, daily range): BP systolic 126–160; BP diastolic 62–84
[2019-08-13] MEDS: ACETAMINOPHEN 325 MG TAB PO PRN (05:00)
--- NOTE | 2019-08-13 07:00 | NUR ---
RECEIVED PATIENT RESTING IN BED NO S/S OF DISTRESS. BED LOW, WHEELS LOCKED, SIDE RAILS X2. CALL LIGHT IN REACH WILL CONTINUE TO MONITOR PATIENT.
[2019-08-13] MEDS: INSULIN REGULAR, HUMAN 100 UNIT/1 ML 3ML VIAL SQ SCH ×4 (07:30→20:29)
[2019-08-13] MEDS: HYDROCHLOROTHIAZIDE 25 MG TAB PO SCH (08:05)
[2019-08-13] MEDS: ASPIRIN 81 MG ENTERIC COATED PO SCH (08:05)
[2019-08-13] MEDS: MEMANTINE 10 MG TAB PO SCH ×2 (08:05→16:37)
[2019-08-13] MEDS: GABAPENTIN 100 MG CAP PO SCH ×3 (08:05→20:27)
[2019-08-13] MEDS: OLMESARTAN 20 MG TAB PO SCH (08:05)
[2019-08-13] MEDS: DULOXETINE HCL 30 MG DELAYED RELEASE PO SCH ×2 (08:05→16:37)
[2019-08-13] MEDS: METFORMIN HCL 500 MG TAB PO SCH ×2 (08:05→16:37)
[2019-08-13] MEDS: DIVALPROEX SODIUM 250 MG TAB...DR PO SCH ×2 (08:05→20:27)
[2019-08-13] MEDS: LORATADINE 10 MG TAB PO SCH (08:05)
[2019-08-13] MEDS: CARVEDILOL 12.5 MG TAB PO SCH ×2 (08:05→16:37)
[2019-08-13] MEDS: FUROSEMIDE 40 MG TAB PO SCH (08:05)
[2019-08-13] MEDS ORDERED: AMLODIPINE BESYLATE 10 MG TAB PO SCH (09:00)
[2019-08-13] MEDS ORDERED: ALBUTEROL SULFATE HFA 8GM INHALATION AEROSOL INH SCH (13:30)
[2019-08-13] MEDS ORDERED: ACETAMIN/BUTALBITAL/CAFFEINE TAB PO ONE (13:45)
[2019-08-13] MEDS ORDERED: ACETAMIN/BUTALBITAL/CAFFEINE TAB PO PRN (13:45)
[2019-08-13] MEDS ORDERED: HYDRALAZINE HCL 20 MG/ML VIAL IV PRN (13:45)
[2019-08-13] MEDS: CYCLOBENZAPRINE HCL 10 MG TAB PO SCH ×2 (14:48→20:27)
[2019-08-13] MEDS: NIFEDIPINE 10 MG CAP PO SCH ×2 (14:49→21:00)
[2019-08-13] MEDS: FAMOTIDINE 20 MG TAB PO SCH (16:37)
[2019-08-13] MEDS: INS LISP PRO/LISP HUMAN 75/25 100 UNITS/ML VIAL SC SCH (16:37)
[2019-08-13] MEDS: HYDROCODONE/APAP 7.5MG-325MG 1 EA TAB PO PRN (16:38)
[2019-08-13] MEDS ORDERED: INSULIN LISPRO SQ SCH (17:00)
[2019-08-13] MEDS ORDERED: INSULIN LISPRO PROTAMINE SQ SCH (17:00)
[2019-08-13] MEDS ORDERED: [UNRECOGNIZED DRUG - OTHER] SQ SCH (17:00)
--- NOTE | 2019-08-13 19:20 | NUR ---
Patient received sitting up in bed. AAO x 3. Patient had no complaints of pain. Respirations even and non-labored. Fall precautions implemented. Patient instructed to call for assistance when needed. Call light within reach.
[2019-08-13] MEDS: ATORVASTATIN 40 MG TAB PO SCH (20:27)
[2019-08-13] MEDS: QUETIAPINE FUMARATE 25 MG TAB PO SCH (20:27)
[2019-08-13] MEDS: DONEPEZIL HCL 5 MG TAB PO SCH (20:27)
[2019-08-13] MEDS ORDERED: NON-FORMULARY MEDICATION (Atorvastatin Calcium 40 MG) PO SCH (21:00)
[2019-08-13] MEDS ORDERED: QUETIAPINE FUMARATE 25 MG TAB PO SCH (21:00)
[2019-08-13] MEDS ORDERED: NON-FORMULARY MEDICATION (Quetiapine Fumarate 50 MG) PO SCH (21:00)
[2019-08-14] VITALS (8 sets, daily range): BP systolic 98–135; BP diastolic 57–63
[2019-08-14 05:37] LABS: BASOPHILS % 0.2 % (0.0-1.0); EOSINOPHILS # (AUTO) 0.2 (0.0-0.4); EOSINOPHILS % 3.7 % (0.0-6.0); HEMATOCRIT 37.3 % (34.2-44.1); HEMOGLOBIN 10.9 g/dL (12.0-16.0); LYMPHOCYTES # (AUTO) 1.3 (1.0-3.2); LYMPHOCYTES % 28.4 % (18.0-39.1); MEAN CORPUSCULAR HEMOGLOBIN 24.1 pg (28-32); MEAN CORPUSCULAR HGB CONC 29.2 g/dL (31-35); MEAN CORPUSCULAR VOLUME 82.5 fL (81-99); MONOCYTES # (AUTO) 0.3 (0.2-0.8); MONOCYTES % 7.1 % (4.4-11.3); NEUTROPHILS # (AUTO) 2.8 (2.1-6.9); NEUTROPHILS % 59.7 % (38.7-80.0); PLATELET COUNT 104 x10e3/uL (140-360); RED BLOOD COUNT 4.52 x10e6/uL (3.6-5.1); RED CELL DISTRIBUTION WIDTH 15.1 % (11.7-14.4)
[2019-08-14 06:06] LABS: ANION GAP 11.7 mmol/L (8-16); CALCIUM 8.6 mg/dL (8.4-10.2); CREATININE, SERUM 1.22 mg/dL (0.57-1.11); MAGNESIUM 1.6 MG/DL (1.3-2.1); PHOSPHORUS 3.7 MG/DL (2.3-4.7); POTASSIUM 4.7 mmol/L (3.5-5.1)
--- NOTE | 2019-08-14 06:45 | NUR ---
Patient resting comfortably. Bed- side report given to oncoming nurse.
--- NOTE | 2019-08-14 06:55 | NUR ---
Patient lying in bed with eyes open. Respiration even and unlabored without SOB. Call light in reach.
[2019-08-14] MEDS: INSULIN REGULAR, HUMAN 100 UNIT/1 ML 3ML VIAL SQ SCH ×4 (07:36→21:23)
[2019-08-14] MEDS: FAMOTIDINE 20 MG TAB PO SCH ×2 (08:23→16:15)
[2019-08-14] MEDS: METFORMIN HCL 500 MG TAB PO SCH (08:23)
[2019-08-14] MEDS: ASPIRIN 81 MG ENTERIC COATED PO SCH (08:24)
[2019-08-14] MEDS: OLMESARTAN 20 MG TAB PO SCH (08:24)
[2019-08-14] MEDS: LORATADINE 10 MG TAB PO SCH (08:25)
[2019-08-14] MEDS: CARVEDILOL 12.5 MG TAB PO SCH ×2 (08:25→16:16)
[2019-08-14] MEDS: DIVALPROEX SODIUM 250 MG TAB...DR PO SCH ×2 (08:26→21:23)
[2019-08-14] MEDS: DULOXETINE HCL 30 MG DELAYED RELEASE PO SCH ×2 (08:26→16:16)
[2019-08-14] MEDS: VALSARTAN 80 MG TAB PO SCH (08:27)
[2019-08-14] MEDS: HYDROCHLOROTHIAZIDE 25 MG TAB PO SCH (08:28)
[2019-08-14] MEDS: CYCLOBENZAPRINE HCL 10 MG TAB PO SCH ×3 (08:28→21:24)
[2019-08-14] MEDS: MEMANTINE 10 MG TAB PO SCH ×2 (08:29→16:16)
[2019-08-14] MEDS: FUROSEMIDE 40 MG TAB PO SCH (08:29)
[2019-08-14] MEDS: GABAPENTIN 100 MG CAP PO SCH ×3 (08:29→21:24)
[2019-08-14] MEDS: PREGABALIN 50 MG CAP PO SCH (08:29)
[2019-08-14] MEDS: NIFEDIPINE 10 MG CAP PO SCH ×3 (08:30→21:24)
[2019-08-14] MEDS: AMLODIPINE BESYLATE 10 MG TAB PO SCH (08:30)
[2019-08-14] MEDS: INS LISP PRO/LISP HUMAN 75/25 100 UNITS/ML VIAL SC SCH ×2 (09:00→17:00)
[2019-08-14] MEDS: HYDROCODONE/APAP 7.5MG-325MG 1 EA TAB PO PRN (11:13)
--- NOTE | 2019-08-14 12:29 | NUR ---
Discontinuing PT services since patient is Mod I in functional mobility. Thank you. Addendum: 08/14/19 at 1229 by Bebeto plata PT Amended: Links added.
[2019-08-14] MEDS ORDERED: ONDANSETRON HCL 4 MG ORAL DISINTEGRATING TAB PO PRN (15:30)
--- NOTE | 2019-08-14 16:25 | NUR ---
CALLED BUILDING TO SEE IF THEY RECEIVED CLINICALS, HAD CALLED EARLIER TODAY BUT WAS TOLD PERSON WAS AT LUNCH AND THEY WOULD CALL BACK. SINCE I NEVER HEARD BACK I CALLED AGAIN AND SPOKE WITH LORE CHILD STILL PENDING AUTH, HAS A PENDING BED AVAILABLE.
--- NOTE | 2019-08-14 19:00 | NUR ---
Report given to table games shift manager. Respiration even and unlabored without SOB. Call light in reach.
--- NOTE | 2019-08-14 19:00 | NUR ---
Received patient awake, not in distress, sitting on the recliner, call light within easy reach, advised to call anytime when needed, will continue to monitor
--- NOTE | 2019-08-14 20:45 | NUR ---
Assisted patient to bed, bed alarm activated
[2019-08-14] MEDS: DONEPEZIL HCL 5 MG TAB PO SCH (21:23)
[2019-08-14] MEDS: ATORVASTATIN 40 MG TAB PO SCH (21:24)
[2019-08-14] MEDS: QUETIAPINE FUMARATE 25 MG TAB PO SCH (21:24)
[2019-08-15] VITALS (8 sets, daily range): BP systolic 100–136; BP diastolic 58–81
[2019-08-15 05:47] LABS: ANION GAP 11.6 mmol/L (8-16); CALCIUM 8.4 mg/dL (8.4-10.2); CREATININE, SERUM 1.09 mg/dL (0.57-1.11); POTASSIUM 3.6 mmol/L (3.5-5.1)
[2019-08-15 05:54] LABS: BASOPHILS % 0.4 % (0.0-1.0); EOSINOPHILS # (AUTO) 0.1 (0.0-0.4); EOSINOPHILS % 3.1 % (0.0-6.0); HEMATOCRIT 34.8 % (34.2-44.1); HEMOGLOBIN 10.6 g/dL (12.0-16.0); LYMPHOCYTES # (AUTO) 1.1 (1.0-3.2); MEAN CORPUSCULAR HGB CONC 30.5 g/dL (31-35); MEAN CORPUSCULAR VOLUME 82.1 fL (81-99); MONOCYTES # (AUTO) 0.4 (0.2-0.8); MONOCYTES % 8.9 % (4.4-11.3); NEUTROPHILS # (AUTO) 2.8 (2.1-6.9); NEUTROPHILS % 62.9 % (38.7-80.0); PLATELET COUNT 103 x10e3/uL (140-360); RED BLOOD COUNT 4.24 x10e6/uL (3.6-5.1); RED CELL DISTRIBUTION WIDTH 15.3 % (11.7-14.4)
--- NOTE | 2019-08-15 07:09 | NUR ---
bedside rounding done with dayshift RN, call light within reach
[2019-08-15] MEDS: INSULIN REGULAR, HUMAN 100 UNIT/1 ML 3ML VIAL SQ SCH ×5 (07:30→20:10)
[2019-08-15] MEDS: INS LISP PRO/LISP HUMAN 75/25 100 UNITS/ML VIAL SC SCH ×2 (08:30→17:00)
[2019-08-15] MEDS: FAMOTIDINE 20 MG TAB PO SCH ×2 (08:42→18:18)
[2019-08-15] MEDS: DIVALPROEX SODIUM 250 MG TAB...DR PO SCH ×2 (08:42→21:07)
[2019-08-15] MEDS: LORATADINE 10 MG TAB PO SCH (08:42)
[2019-08-15] MEDS: VALSARTAN 80 MG TAB PO SCH (08:42)
[2019-08-15] MEDS: ASPIRIN 81 MG ENTERIC COATED PO SCH (08:42)
[2019-08-15] MEDS: CYCLOBENZAPRINE HCL 10 MG TAB PO SCH ×3 (08:42→21:07)
[2019-08-15] MEDS: HYDROCHLOROTHIAZIDE 25 MG TAB PO SCH (08:42)
[2019-08-15] MEDS: CARVEDILOL 12.5 MG TAB PO SCH ×2 (08:42→18:18)
[2019-08-15] MEDS: OLMESARTAN 20 MG TAB PO SCH (08:42)
[2019-08-15] MEDS: DULOXETINE HCL 30 MG DELAYED RELEASE PO SCH ×2 (08:42→18:18)
[2019-08-15] MEDS: GABAPENTIN 100 MG CAP PO SCH ×3 (08:43→21:07)
[2019-08-15] MEDS: PREGABALIN 50 MG CAP PO SCH (08:43)
[2019-08-15] MEDS: MEMANTINE 10 MG TAB PO SCH ×2 (08:43→18:19)
[2019-08-15] MEDS: AMLODIPINE BESYLATE 10 MG TAB PO SCH (08:43)
[2019-08-15] MEDS: NIFEDIPINE 10 MG CAP PO SCH ×3 (08:43→20:10)
[2019-08-15] MEDS: FUROSEMIDE 40 MG TAB PO SCH (08:43)
--- NOTE | 2019-08-15 09:08 | NUR ---
CALLED AND SPOKE WITH LORE AT [facility] SHE STATES SHE NEEDS MORE DOCUMENTATION ABOUT DEMENTIA AND AGAINST BASELINE TO QUALIFY. FAXED NURSES AND MD NOTES. LET HER KNOW READY FOR DISCHARGE.
[2019-08-15] MEDS: HYDROCODONE/APAP 7.5MG-325MG 1 EA TAB PO PRN (15:53)
--- NOTE | 2019-08-15 19:15 | NUR ---
BEDSIDE SHIFT REPORT RECEIVED. PATIENT IS RESTING IN BED, RESP EVEN AND UNLABORED. NO ACUTE DISTRESS NOTED. EDUCATED PT ABOUT FALL PRECAUTIONS. PT VERBALIZED UNDERSTANDING. CALL LIGHT WITH IN EASY REACH. INSTRUCTED PT TO USE CALL LIGHT FOR ALL THE NEEDS. BED IS LOW AND LOCKED. SIDE RAILS X2. BED ALARM IS ON. PT DENIES NEEDS AT THIS TIME. CONTINUE TO MONITOR CLOSELY
--- NOTE | 2019-08-15 20:35 | NUR ---
PATIENT GOT OUT OF BED AND TURNED OFF BED ALARM BY HERSELF. PATIENT REFUSED BED ALARM. EDUCATED PATIENT ABOUT FALL PRECAUTION AGAIN.
[2019-08-15] MEDS: QUETIAPINE FUMARATE 25 MG TAB PO SCH (21:07)
[2019-08-15] MEDS: ATORVASTATIN 40 MG TAB PO SCH (21:07)
[2019-08-15] MEDS: DONEPEZIL HCL 5 MG TAB PO SCH (21:07)
[2019-08-16] VITALS: BP 99/56
[2019-08-16 04:00] VITALS: BP 132/60
--- NOTE | 2019-08-16 06:55 | NUR ---
Received patient lying in bed with eyes open. Respiration even and unlabored without SOB. Call light in reach.
[2019-08-16] MEDS: INSULIN REGULAR, HUMAN 100 UNIT/1 ML 3ML VIAL SQ SCH ×4 (07:30→21:00)
[2019-08-16 07:59] VITALS: BP 116/68
[2019-08-16] MEDS: INS LISP PRO/LISP HUMAN 75/25 100 UNITS/ML VIAL SC SCH ×2 (08:00→16:43)
[2019-08-16] MEDS: ASPIRIN 81 MG ENTERIC COATED PO SCH (08:20)
[2019-08-16] MEDS: FAMOTIDINE 20 MG TAB PO SCH ×3 (08:20→21:19)
[2019-08-16] MEDS: OLMESARTAN 20 MG TAB PO SCH (08:21)
[2019-08-16] MEDS: LORATADINE 10 MG TAB PO SCH (08:21)
[2019-08-16] MEDS: CARVEDILOL 12.5 MG TAB PO SCH ×2 (08:22→16:42)
[2019-08-16] MEDS: VALSARTAN 80 MG TAB PO SCH (08:22)
[2019-08-16] MEDS: DULOXETINE HCL 30 MG DELAYED RELEASE PO SCH ×2 (08:22→16:42)
[2019-08-16] MEDS: DIVALPROEX SODIUM 250 MG TAB...DR PO SCH ×2 (08:22→21:18)
[2019-08-16] MEDS: HYDROCHLOROTHIAZIDE 25 MG TAB PO SCH (08:23)
[2019-08-16] MEDS: MEMANTINE 10 MG TAB PO SCH ×2 (08:24→16:42)
[2019-08-16] MEDS: PREGABALIN 50 MG CAP PO SCH (08:24)
[2019-08-16] MEDS: CYCLOBENZAPRINE HCL 10 MG TAB PO SCH ×3 (08:24→21:21)
[2019-08-16] MEDS: FUROSEMIDE 40 MG TAB PO SCH (08:24)
[2019-08-16] MEDS: AMLODIPINE BESYLATE 10 MG TAB PO SCH (08:25)
[2019-08-16] MEDS: GABAPENTIN 100 MG CAP PO SCH ×3 (08:25→21:19)
[2019-08-16] MEDS: NIFEDIPINE 10 MG CAP PO SCH ×3 (08:25→21:20)
[2019-08-16 08:37] VITALS: BP 116/68
--- NOTE | 2019-08-16 08:55 | NUR ---
CALLED BUILDING FOR UPDATE, LORE IN MEETING WILL CALL BACK.
[2019-08-16] MEDS ORDERED: LORAZEPAM INJ 2 MG/ML VIAL IM PRN (13:00)
[2019-08-16] MEDS ORDERED: HALOPERIDOL LACTATE 5 MG/ML VIAL IM PRN (13:00)
[2019-08-16] MEDS: HYDROCODONE/APAP 7.5MG-325MG 1 EA TAB PO PRN ×2 (13:49→21:22)
[2019-08-16] MEDS: PILOCARPINE HCL 5 MG PO SCH ×2 (14:00→21:00)
--- NOTE | 2019-08-16 15:54 | Consultation ---
DATE OF CONSULTATION: 08/16/2019 Psychiatric Consultation REASON FOR CONSULTATION: To evaluate the patient's psychosis and dementia. HISTORY OF PRESENT ILLNESS: The patient is a 74-year-old female, admitted to the hospital for hypoglycemia and weakness. Psychiatric consultation is called to evaluate the patient's psychosis and dementia. Upon evaluation today, the patient is found to be in the room. She is sitting up. Her daughter is in the room with her as well as her . The patient is alert, awake, and oriented to self. She knows she is in the hospital. She does not know the current year. She thinks it is 1999 and she is unable to state the current president. She does not appear to know why she is in the hospital. She claims it is for some back issues. She appears to have poor insight into her illness. The patient claims that she is depressed and anxious due to her living situation because she like where she was living. She denies feeling hopeless or helpless. She denies any suicidal or homicidal ideation. She denies any hallucination. She denies any appetite problem, but claims that she is having issue with sleep at night. Sometimes she does not sleep for 3 nights in a row and often would take pain/bjtx-ppd-mdgzuzk sleep medication for that. The patient claims she was living with her at assisted living facility, where she is minimally assisting herself, namely with she is pretty much eating and doing self hygiene, cleaning. She has staff giving her medication. She does not pay the bills. Her daughter self-reported of being medical power of managing attorney is paying the bills for her. I had a long discussion with the daughter with the patient's permission that the patient has been diagnosed with dementia for the last 3 or 4 years and she is worsening in terms of her confusion. She does not sleep at night. She is paranoid, delusional. She talks to Dwayne. She talks to her mother. She thinks Dwayne' daughter wants her to go to [facility]. The patient has been telling them and also to me that she talks over the phone with Dwayne' daughter often. As per nursing note, the patient has been intermittently trying to elope from the facility and needed medication for that. PAST PSYCHIATRIC HISTORY: The patient denied past psychiatric history, although she has history of dementia. She denies past suicide attempts. She denies alcohol and drug use. FAMILY HISTORY: The patient denied at first that any of the family history, however, daughter claims that the patient's mom has Alzheimer. SOCIAL HISTORY: The patient has been living in assisted living facility with her . MENTAL STATUS EXAM: The patient is an elderly female. She is alert, awake, and oriented to self and some situation. She is calm at this time. Affect is blunt. Mood is anxious and depressed. Psychomotor state is relaxed. She denies any suicidal or homicidal ideation. Denies any hallucination. Thought process is concrete to loose. Insight and judgment are limited to impaired. Memory appears to be grossly impaired. CURRENT MEDICATIONS: 1. Nifedipine. 2. Amlodipine. 3. Neurontin 200 mg p.o. 3 times a day. 4. Pregabalin. 5. Restoril. 6. Namenda 5 mg p.o. b.i.d. 7. Lasix. 8. Hydrochlorothiazide. 9. Valsartan. 10. Carvedilol. 11. Cymbalta 30 mg p.o. b.i.d. 12. Depakote 250 mg p.o. q.12. 13. Olmesartan. 14. Loratadine. 15. Famotidine. 16. Aspirin. 17. Insulin. 18. Atorvastatin. 19. Aricept 10 mg p.o. at bedtime. 20. Seroquel 50 mg p.o. at bedtime. 21. [place] p.r.n. 22. Acetaminophen. 23. Pilocarpine. 24. Fioricet. 25. Ondansetron. 26. Hydralazine. 27. Albuterol. 28. Zanaflex. 29. Dextrose. 30. Temazepam 30 mg p.o. at bedtime p.r.n. CURRENT LABORATORY DATA: WBC 4.5, RBC 4.24, hemoglobin 10.6, hematocrit 34.8, and platelets 103. Sodium 141, potassium 3.6, chloride 105, CO2 28, BUN 18, and creatinine 1.9. AST 15 and ALT 16. ASSESSMENT: 1. Unspecified psychosis. 2. Unspecified dementia with behavior disturbances. PLAN: 1. To discontinue temazepam p.r.n. 2. Add Seroquel 25 mg p.o. q.6 hours as needed. 3. Continue Seroquel 50 mg p.o. at bedtime. 4. Continue Aricept 10 mg p.o. at bedtime. 5. Continue with Namenda 5 mg p.o. b.i.d. 6. Continue with Neurontin 200 mg p.o. 3 times a day. 7. Add Haldol 2 mg IM q.6 hours p.r.n. 8. Monitor for agitation and mood. 9. Supportive therapy. Thank you for this consultation. Dictated by Rose Greenwood PA-C Jose G Funez MD QTV/MODL /[id number]
[2019-08-16 16:00] VITALS: BP 109/60
--- NOTE | 2019-08-16 19:30 | NUR ---
Report given to grinding wheel dresser. Respiration even and unlabored without SOB. Call light in reach.
[2019-08-16 20:00] VITALS: BP 124/84
[2019-08-16] MEDS: DONEPEZIL HCL 5 MG TAB PO SCH (21:18)
[2019-08-16] MEDS: ATORVASTATIN 40 MG TAB PO SCH (21:19)
[2019-08-16] MEDS: QUETIAPINE FUMARATE 25 MG TAB PO SCH (21:19)
[2019-08-17] VITALS (10 sets, daily range): BP systolic 112–144; BP diastolic 57–72
--- NOTE | 2019-08-17 01:59 | NUR ---
PATIENT SEEN STANDING AT DOOR WITH BLOOD ON RIGHT HAND, IV DRESSING BLOODY, CATHETER DISLODGE SEEN SITTING ON TOP OF PATIENT SKIN, ADVISED PATIENT THAT IV DISLODGED, NEED TO REPLACE, REFUSING AT THIS TIME
[2019-08-17 05:10] LABS: BASOPHILS % 0.4 % (0.0-1.0); EOSINOPHILS # (AUTO) 0.1 (0.0-0.4); EOSINOPHILS % 3.1 % (0.0-6.0); HEMATOCRIT 37.4 % (34.2-44.1); HEMOGLOBIN 11.2 g/dL (12.0-16.0); LYMPHOCYTES # (AUTO) 1.2 (1.0-3.2); LYMPHOCYTES % 26.2 % (18.0-39.1); MEAN CORPUSCULAR HEMOGLOBIN 24.5 pg (28-32); MEAN CORPUSCULAR HGB CONC 29.9 g/dL (31-35); MEAN CORPUSCULAR VOLUME 81.7 fL (81-99); MONOCYTES # (AUTO) 0.4 (0.2-0.8); MONOCYTES % 9.4 % (4.4-11.3); NEUTROPHILS # (AUTO) 2.7 (2.1-6.9); PLATELET COUNT 122 x10e3/uL (140-360); RED BLOOD COUNT 4.58 x10e6/uL (3.6-5.1); RED CELL DISTRIBUTION WIDTH 15.1 % (11.7-14.4)
[2019-08-17 05:36] LABS: CALCIUM 8.7 mg/dL (8.4-10.2); CREATININE, SERUM 1.23 mg/dL (0.57-1.11); MAGNESIUM 1.7 MG/DL (1.3-2.1)
--- NOTE | 2019-08-17 07:00 | NUR ---
RCD PT AT BED PT IS ALERT AND ORIENTED PT RESTING ON BED NO IV ACCESS BED LOW AND LOCKED CALL LIGHT IN REACH
[2019-08-17] MEDS: INSULIN REGULAR, HUMAN 100 UNIT/1 ML 3ML VIAL SQ SCH ×4 (07:30→21:38)
[2019-08-17] MEDS: PREGABALIN 50 MG CAP PO SCH (09:00)
[2019-08-17] MEDS: NIFEDIPINE 10 MG CAP PO SCH ×3 (09:00→21:34)
[2019-08-17] MEDS: VALSARTAN 80 MG TAB PO SCH (09:00)
[2019-08-17] MEDS: LORATADINE 10 MG TAB PO SCH (09:00)
[2019-08-17] MEDS: OLMESARTAN 20 MG TAB PO SCH (09:00)
[2019-08-17] MEDS: DIVALPROEX SODIUM 250 MG TAB...DR PO SCH ×2 (09:00→21:35)
[2019-08-17] MEDS: CARVEDILOL 12.5 MG TAB PO SCH ×2 (09:00→17:00)
[2019-08-17] MEDS: AMLODIPINE BESYLATE 10 MG TAB PO SCH (09:00)
[2019-08-17] MEDS: DULOXETINE HCL 30 MG DELAYED RELEASE PO SCH ×2 (09:00→17:00)
[2019-08-17] MEDS: MEMANTINE 10 MG TAB PO SCH ×2 (09:00→17:00)
[2019-08-17] MEDS: CYCLOBENZAPRINE HCL 10 MG TAB PO SCH ×3 (09:00→21:35)
[2019-08-17] MEDS: ASPIRIN 81 MG ENTERIC COATED PO SCH (09:00)
[2019-08-17] MEDS: GABAPENTIN 100 MG CAP PO SCH ×3 (09:00→21:34)
[2019-08-17] MEDS: PILOCARPINE HCL 5 MG PO SCH ×3 (09:00→21:00)
[2019-08-17] MEDS: HYDROCHLOROTHIAZIDE 25 MG TAB PO SCH (09:00)
[2019-08-17] MEDS: INS LISP PRO/LISP HUMAN 75/25 100 UNITS/ML VIAL SC SCH ×2 (09:00→17:00)
[2019-08-17] MEDS: FUROSEMIDE 40 MG TAB PO SCH (09:00)
--- NOTE | 2019-08-17 10:31 | NUR ---
FAXED PSYCH NOTE TO [facility] WILL FOLLOW UP TO SEE STATUS.
[2019-08-17] MEDS: HYDROCODONE/APAP 7.5MG-325MG 1 EA TAB PO PRN (11:47)
--- NOTE | 2019-08-17 12:46 | NUR ---
CALLED BUILDING TO MAKE CERTAIN RECEIVED FAX, WAS TOLD WILL RETURN CALL.
--- NOTE | 2019-08-17 13:25 | NUR ---
NOTIFIED THE FAMILY HER DAUGHTER NAMED LORRIE
--- NOTE | 2019-08-17 13:25 | NUR ---
PATIENT IS WALKING IN ROOM , I SAW THE PT LYING ON THE FLOOR I DONT KNOW SHE FELL DOWN OR NOT , HELPED THE PT GET UP AND LIE ON THE BED ,VITALS CHECKED HEAD TO FOOT ASSESSMENT DONE ,SHE DONT HAVE ANY COMPLAINS NOTIFIED JOSE R MEREDITH AND NOTIFIED THE PATTERN PUNCHER
--- NOTE | 2019-08-17 15:12 | Diagnostic Imaging Report ---
EXAMINATION: SP LUMBAR AP LATERAL 2-3VWS, THORACIC SP 3V INDICATION: Back pain COMPARISON: None FINDINGS: Thoracic spine: No acute fracture or dislocation. Vertebral body height is well preserved. Alignment is anatomic. Mild multilevel degenerative changes with disc space narrowing and small osteophyte formation. Lumbar spine: No acute fracture or dislocation. Vertebral body heights are well preserved. Alignment is anatomic. Mild multilevel degenerative changes with disc space narrowing, osteophyte formation and facet arthropathy. IMPRESSION: No compression fracture. Multilevel degenerative changes as above. Signed by: Kimber Iyer MD on 08/17/2019 3:09 PM
[2019-08-17] MEDS: FAMOTIDINE 20 MG TAB PO SCH (16:30)
--- NOTE | 2019-08-17 16:59 | NUR ---
CALLED [facility] [phone] ASKED TO SPEAK WITH LORE WAS TOLD SHE LEFT FOR TODAY.
--- NOTE | 2019-08-17 17:02 | NUR ---
CALLED DAUGHTER HEATH ROSE [phone] LEFT VOICE MALE FOR RETURN CALL AND LET HER KNOW FACILITY SHE CHOSE IS NOT RETURNING CALLS.
--- NOTE | 2019-08-17 19:17 | NUR ---
PT RESTING ON BED BED SIDE REPORT GIVEN TO ONCOMING NURSE
[2019-08-17] MEDS: DONEPEZIL HCL 5 MG TAB PO SCH (21:35)
[2019-08-17] MEDS: ATORVASTATIN 40 MG TAB PO SCH (21:35)
[2019-08-17] MEDS: QUETIAPINE FUMARATE 25 MG TAB PO SCH (21:36)
--- NOTE | 2019-08-17 23:00 | NUR ---
PATIENT SEEN WALKING AROUND HER ROOM UNASSISTED, BECOME ANGRY AND AGITATED WHEN ADVISED HER TO RETURN TO BED OR ASK PRIOR TO GET OOB FOR BATHROOM, BED ALARM PLACD ON PRIOR TO LEAVING HER ROOM, BUT PATIENT SEEN WALKING INTO HALLWAY UNASSISTED WITH NO ALARM SOUNDING, ASKED HER ABOUT IT AND SHE STATED "I TURNED THAT OFF, IT WAS GOING OFF", PRN AGITATION MEDICATION GIVEN FOR OPTIMAL REST
[2019-08-18] VITALS (14 sets, daily range): BP systolic 107–144; BP diastolic 53–67
--- NOTE | 2019-08-18 07:00 | NUR ---
RCD PT AT BED PT IS ALERT AND ORIENTED PT SLEEPING ON BED ON BED IV PATENT BY SALINE FLUSH BED LOW AND LOCKED CALL LIGHT IN REACH
[2019-08-18] MEDS: FAMOTIDINE 20 MG TAB PO SCH ×2 (07:30→16:04)
[2019-08-18] MEDS: INSULIN REGULAR, HUMAN 100 UNIT/1 ML 3ML VIAL SQ SCH ×4 (07:30→21:00)
[2019-08-18] MEDS: QUETIAPINE FUMARATE 25 MG TAB PO PRN ×2 (08:00→16:05)
[2019-08-18] MEDS: INS LISP PRO/LISP HUMAN 75/25 100 UNITS/ML VIAL SC SCH ×2 (08:05→16:08)
[2019-08-18] MEDS: VALSARTAN 80 MG TAB PO SCH (09:00)
[2019-08-18] MEDS: AMLODIPINE BESYLATE 10 MG TAB PO SCH (09:00)
[2019-08-18] MEDS: CYCLOBENZAPRINE HCL 10 MG TAB PO SCH (09:00)
[2019-08-18] MEDS: FUROSEMIDE 40 MG TAB PO SCH (09:00)
[2019-08-18] MEDS: PILOCARPINE HCL 5 MG PO SCH ×3 (09:00→21:00)
[2019-08-18] MEDS: PREGABALIN 50 MG CAP PO SCH (09:00)
[2019-08-18] MEDS: DULOXETINE HCL 30 MG DELAYED RELEASE PO SCH ×2 (09:00→16:05)
[2019-08-18] MEDS: MEMANTINE 10 MG TAB PO SCH ×2 (09:00→16:05)
[2019-08-18] MEDS: ASPIRIN 81 MG ENTERIC COATED PO SCH (09:00)
[2019-08-18] MEDS: NIFEDIPINE 10 MG CAP PO SCH ×3 (09:00→22:36)
[2019-08-18] MEDS: GABAPENTIN 100 MG CAP PO SCH ×3 (09:00→22:36)
[2019-08-18] MEDS: DIVALPROEX SODIUM 250 MG TAB...DR PO SCH ×2 (09:00→22:36)
[2019-08-18] MEDS: OLMESARTAN 20 MG TAB PO SCH (09:00)
[2019-08-18] MEDS: HYDROCHLOROTHIAZIDE 25 MG TAB PO SCH (09:00)
[2019-08-18] MEDS: CARVEDILOL 12.5 MG TAB PO SCH ×2 (09:00→16:04)
[2019-08-18] MEDS: LORATADINE 10 MG TAB PO SCH (09:00)
--- NOTE | 2019-08-18 10:57 | NUR ---
SPOKE WITH DAUGHTER HEATH THIS MORNING, SHE STATED TO TRY [facility] SENT.
--- NOTE | 2019-08-18 15:57 | NUR ---
[facility] DISCHARGE INFORMATION PATIENT HAS BEEN ACCEPTED TO: NAME: [facility] [place] ADDRESS:[address], [place] [address] ACCEPTING VISION IMPAIRED TEACHER:JOLYNN SALAZAR MD: SHERMAN AGUILAR ROOM:104 NURSE CALL REPORT TO: [phone] IMM SIGNED AND OBTAINED (if applicable): IMM VIA PHONE TO DAUGHTER THE FOLLOWING DOCUMENTS MUST ACCOMPANY PATIENT FOR TRANSFER: COPIED CHART: PACKET
--- NOTE | 2019-08-18 16:00 | NUR ---
EDUCATED ABOUT IMM, SIGNED, FILED IN CHART, WITH COPY LEFT WITH FAMILY AT BEDSIDE.
[2019-08-18] MEDS ORDERED: FAMOTIDINE20 MG PO (16:59)
[2019-08-18] MEDS ORDERED: Haloperidol Lactate IM (16:59)
[2019-08-18] MEDS ORDERED: ASPIRIN EC81 MG PO (16:59)
[2019-08-18] MEDS ORDERED: HUMALOG MI100 UNITS/ SC (16:59)
[2019-08-18] MEDS ORDERED: LORAZEPAM2 MG/1 M1 IM (16:59)
[2019-08-18] MEDS ORDERED: ACETAMINOPHEN325 M1 PO (16:59)
[2019-08-18] MEDS ORDERED: Atorvastatin PO (16:59)
[2019-08-18] MEDS ORDERED: SEROQUEL25 MG PO (16:59)
[2019-08-18] MEDS ORDERED: Ondansetron Oral Disintegratin PO (16:59)
--- NOTE | 2019-08-18 17:10 | NUR ---
TRYING TO CALL THE REPORT THEY ANSWERED AND TRANSFERRED THE CALL THEY HOLD FOR LONG TIME FOR 2 TIMES
--- NOTE | 2019-08-18 18:10 | NUR ---
REPORT GIVEN TO RAINE SHABAZZ
--- NOTE | 2019-08-18 18:26 | NUR ---
Nutrition Screen Note RD Recommendation for Physician: -Continue current diet as ordered Plan of Care: RD following, monitoring for tolerance and adequacy Nutrition reason for involvement: Length of stay Primary Diagnose(s): hyperglycemia and weakness PMH: HTN, type 2 diabetes, dementia, insomnia, anxiety, depression, hepatitis C, chronic pain Ht: 69 in Wt: 289 lb BMI: 42.7 kg/m2 IBW: [address] Assessment: (08/17) Chart reviewed. Labs and meds reviewed. Pt is a 74 year old female admitted with hyperglycemia and weakness. Pt was sleeping at time of visit and no family members were present. It is recorded that pt consumed 75% of breakfast and lunch today. Will continue to monitor. Current Diet: 1800 kcal ADA Malnutrition Evaluation (08/17) The patient does not meet criteria for a specified degree of malnutrition at this time. Will re-evaluate at follow-up as appropriate. Diet Education Needs Assessment: RD is available for diet education as needed. Nutrition Care Level: low Signed: Amanda Torres, RD, LD
--- NOTE | 2019-08-18 19:08 | NUR ---
PT RESTING ON BED BED SIDE REPORT GIVEN TO ONCOMING NURSE PT WAITING FOR AMBULANCE
--- NOTE | 2019-08-18 19:30 | NUR ---
while this typewriters functional tester was rounding on other patients I was informed that the patient was on the floor. upon entering the room I observed the patient lying on the floor. head to toe assessment complete. patient has a knot at the back of the head. patient is also complaining of right knee pain. patient has been helped up off of the floor and placed in the bed. when asked how the patient ended up on the floor patient states she was trying to get into the closet and fell onto the floor. patient has been reminded to use the call light before attempting to get out of bed. call light has been placed within reach. bed alarm has been reactivated. AIR BRUSH OPERATOR Hitesh has been notified. received new orders for STAT Head CT and STAT right knee surgery. Family member Katy Chawla notified via telephone. will continue to monitor patient.
--- NOTE | 2019-08-18 20:35 | Diagnostic Imaging Report ---
EXAMINATION: Head CT without contrast. HISTORY:Fall. COMPARISON:CT brain from 07/30/2019. TECHNIQUE: Multidetector axial images were obtained from the foramen magnum to the vertex without contrast. The images were reconstructed using brain and bone algorithms. Thin section brain images were reformatted into coronal and sagittal planes. Dose modulation, iterative reconstruction, and/or weight based adjustment of the mA/kV was utilized to reduce the radiation dose to as low as reasonably achievable. Intravenous contrast: None IMAGE QUALITY: Acceptable. FINDINGS: Skull/scalp: No lytic or blastic. lesions. No surgical changes. Parenchyma: Nonspecific bilateral frontoparietal patchy white matter hypodensity are likely related to small vessel ischemic changes. Unchanged focal hypodensity in the anterior limb of right internal capsule/anterior aspect of right putamen represents chronic lacunar infarct. No acute hemorrhage, mass or acute major vascular territorial infarct. Arteries: No density suggestive of thrombosis. Dural sinuses: No abnormal density suggestive of thrombosis. Ventricles: Mild compensated dilatation due to volume loss. No hydrocephalus or displacement. Extra-axial spaces: No abnormal density. Brain volume: Mild generalized cerebral volume loss. Unchanged nonspecific disproportionate volume loss in the anterior and medial aspect of right temporal lobe. Craniocervical junction: No mass, Chiari malformation, or basilar invagination. Sella: No mass. Paranasal/mastoid sinuses: Imaged portions unremarkable. IMPRESSION: No acute intracranial abnormality. No change since CT head from 07/30/2019. Chronic findings: 1. Mild to moderate supratentorial white matter microvascular ischemic changes. 2. Generalized age-related cerebral volume loss. Signed by: Dr. Estephania Leija M.D. on 08/18/2019 8:32 PM
--- NOTE | 2019-08-18 20:46 | Diagnostic Imaging Report ---
Right complete knee. CPT CODE: 84702. INDICATION: Fall ^s/p Fall today, c/o Rt knee pain, r/o Fracture ^[id number] ^2023 ^Y COMPARISON: Knee x-rays 06/18/2017 FINDINGS: No evidence of acute fracture or dislocation. Mild to moderate medial lateral compartment narrowing. There is moderate patellofemoral compartment narrowing. No significant progression. No joint effusion. No radiopaque foreign bodies in the soft tissues. IMPRESSION: No acute traumatic pathology. 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 Signed by: Dr. Nadia Mcintosh MD on 08/18/2019 8:43 PM
[2019-08-18] MEDS: QUETIAPINE FUMARATE 25 MG TAB PO SCH (22:36)
[2019-08-18] MEDS: DONEPEZIL HCL 5 MG TAB PO SCH (22:36)
[2019-08-18] MEDS: ATORVASTATIN 40 MG TAB PO SCH (22:36)
--- NOTE | 2019-08-19 01:30 | NUR ---
EMS is in building picking up patient to transport to senior living facility. patient has left facility with all belongings. IV has been discontinued prior to discharge. patient left facility awake and talking.
--- NOTE | 2019-08-21 05:43 | Discharge Summary ---
PRIMARY CARE PHYSICIAN: Dr. Stan Martínez. CONSULTING PHYSICIAN: Dr. Jose G Funez. CHIEF COMPLAINT: Elevated blood glucose, generalized weakness, and altered mental status. HISTORY OF PRESENT ILLNESS: This is a 74-year-old female, who got admitted with elevated blood glucose, generalized weakness, and altered mental status. She lived in [facility]. The patient is a poor historian and there is no family at bedside at the time the nurse practitioner, who admitted the patient, saw her. Dr. Baca discussed the plan of care with the family and the power of estate planning attorney requested for memory care unit placement. Case management was consulted. PAST MEDICAL HISTORY: Hypertension, type 2 diabetes mellitus, dementia, insomnia, anxiety, depression, hepatitis C, and chronic pain. PAST SURGICAL HISTORY: Bariatric surgery, hernia repair, and x2. FAMILY HISTORY: Diabetes mellitus. SOCIAL HISTORY: Noncontributory. ALLERGIES: TO SULFA AND PENICILLIN. ADMITTING DIAGNOSES: 1. Type 2 diabetes mellitus with hyperglycemia. 2. Hypertension, uncontrolled. 3. Anxiety. 4. Depression. 5. Dementia. 6. Insomnia. DISCHARGE DIAGNOSES: 1. Uncontrolled type 2 diabetes mellitus with hyperglycemia. 2. Acute generalized weakness. 3. Ambulatory dysfunction. 4. Status post fall on 08/17/2019. 5. Metabolic encephalopathy. 6. Altered mental status, deviating from baseline. 7. Dementia with behavioral disturbances. 8. Unspecified psychosis. 9. Anxiety. 10. Depression. 11. Dementia. 12. Wfulf-jr-xcbqclk low back pain. 13. Persistent headache. 14. Thrombocytopenia. HOSPITAL COURSE: On admission; WBC 9.38, hemoglobin 12.3, hematocrit 41, and platelets 113. BUN 13, creatinine 0.95, estimated GFR 58, glucose 332, albumin 3.2. Urinalysis done on August 10, showed 2+ glucose and trace ketones, otherwise within normal limits. PTT 20.3. No growth from urine culture collected on August 10. Chest x-ray was negative on August 10. During her stay, the patient remained confused. The patient fell in her room on August 16. Thoracic and lumbar x-rays were completed, which showed no compression fracture. There was multilevel degenerative changes with disk space narrowing and small osteophyte formation. Dr. Funez with Psychiatry was consulted to evaluate the patient's psychosis and dementia. Diagnoses listed for unspecified psychosis and unspecified dementia with behavior disturbances. Further now plan included to discontinue the temazepam. Add Seroquel 25 mg p.o. q.6 hours p.r.n. Continue Seroquel 50 mg p.o. at bedtime. Continue Aricept 10 mg p.o. at bedtime. Continue with Namenda 5 mg p.o. b.i.d. Continue with Neurontin 200 mg p.o. t.i.d. Add Haldol 2 mg IM every 6 hours p.r.n. and monitor for agitation and mood. The patient was encouraged to use her walker, however, remained confused, often noncompliant with this. She was not using her walker when she fell, although there were reportedly bedbugs at [facility], and there were none seen on the patient at any time. Regardless, the patient was kept in contact isolation during her stay. She had diarrhea twice on August 12 at 2 or 3 times on August 11. Currently, no diarrhea. Considering her confusion and recent fall, Flexeril and Killdeer were discontinued. On August 16, WBCs 4.46, hemoglobin 11.2, hematocrit 37.4, and platelets 122,000. Fingerstick blood glucose levels today 212 and 337 on August 16. Sodium 140, potassium 4.0, chloride 100, CO2 of 34, BUN 23, creatinine 1.23, GFR 43, glucose 146, calcium 8.7, phosphorus 4.0, magnesium 1.7. Earlier in her stay, she had cardiac enzymes done x3 and all cardiac biomarkers were within normal limits. Her B-type natriuretic peptide was 27.2 on admission. The patient's family preferred [place] is a location for her to go to. Initially, it was thought that she may go to [place], however, she will be discharged today to [facility] in [place]. Case was discussed with Dr. Baca as well as Jasmin with Case Management. No change in physical exam. She is to continue her ADA diet. Activity level as tolerated using a walker. Follow up with at the long-term. Follow up with Dr. Funez on an outpatient basis. Dictated by Hitesh Alicia NP MD FRANTZ TinsleyP/MODL /[id number]
--- NOTE | 2019-08-21 10:54 | Progress Note ---
DATE: 08/18/2019 Psychiatric Progress Note The patient evaluated, events noted. The patient is in the room. She is alert, awake, and oriented to situation. She is calm. She denies any depression. Denies anxiety. Denies any hallucination. She does not know what year it is, but knows is in the hospital. She is cooperative. She is waiting for placement. ASSESSMENT: 1. Unspecified psychosis. 2. Unspecified dementia with behavior disturbances. PLAN: 1. Continue with current medications. 2. Supportive therapy. Dictated by Rose Greenwood PA-C Jose G Funez MD QTV/MODL /[id number]
== END 2019-08-19 01:37 | DRG 637 ==
LOC: ER 12:58 → ERHOLD 15:24 → OBSVTOIN 08-12 10:09 → MED/SURG2 08-12 15:31
PROVIDERS: ADMIT Internal Medicine; ATTEND Internal Medicine
DX: E11.65 Type 2 diabetes mellitus with hyperglycemia (principal); G93.41 Metabolic encephalopathy; F03.91 Unspecified dementia, unspecified severity, with behavioral disturbance; F05 Delirium due to known physiological condition; Z68.41 Body mass index [BMI] 40.0-44.9, adult; I10 Essential (primary) hypertension; D69.6 Thrombocytopenia, unspecified; F03.90 Unspecified dementia, unspecified severity, without behavioral disturbance, psychotic disturbance, mood disturbance, and anxiety; F41.9 Anxiety disorder, unspecified; W19.XXXA Unspecified fall, initial encounter; G47.00 Insomnia, unspecified; F32.9 Major depressive disorder, single episode, unspecified; R51 Headache; R19.7 Diarrhea, unspecified; I95.9 Hypotension, unspecified; B88.9 Infestation, unspecified; E66.01 Morbid (severe) obesity due to excess calories; Y93.9 Activity, unspecified; Y92.230 Patient room in hospital as the place of occurrence of the external cause; B19.20 Unspecified viral hepatitis C without hepatic coma; G89.29 Other chronic pain
CPT/HCPCS: 36415; 70450; 71045; 72072; 72100; 80048; 80053; 80061; 81001; 82550; 82553; 82948; 83735; 83880; 84100; 84484; 85025; 85610; 85730; 87086; 93005; 99284; G0378; J0696; J1630; J1815; J1817; J2060; J7030; J7799